=== PATIENT | female | born 1970 | race Caucasian/White ===

== ENCOUNTER 2016-05-30 09:05 | Inpatient (IN) | payer OTHER ==
--- NOTE | 2016-05-30 09:26 | CPEKG ---
Heart Rate: 67 RR Interval: 896 P-R Interval: 132 QRSD Interval: 86 QT Interval: 400 QTC Interval: 423 P Arden[place]: 78 QRS Ardenvoir: 93 T Wave Ardenvoir: 68 EKG Severity - BORDERLINE ECG - EKG Impression: SINUS RHYTHM EKG Impression: BORDERLINE RIGHT AXIS DEVIATION EKG Impression: BORDERLINE T ABNORMALITIES, ANT-LAT LEADS Electronically Signed By: Emile Lan 30-May-2016 14:22:46
[2016-05-30 10:02] LABS: % IMMATURE GRANULYOCYTES 0.4 % (0.0-1.1); ABSOLUTE IMMATURE GRANULOCYTES 0.03 10^3/uL (0.00-0.10); ADD DIFF? NO; ADD MORPH? NO; ADD SCAN? NO; ATYPICAL LYMPHOCYTE FLAG 0 (0-99); FRAGMENT RBC FLAG 0 (0-99); HEMATOCRIT 39.7 % (38.0-47.0); HEMOGLOBIN 13.3 g/dL (12.6-16.3); LEFT SHIFT FLG 0 (0-99); LIPEMIA HEMOLYSIS FLAG 80 (0-99); MEAN CELL HEMOGLOBIN 33.8 pg (27.9-34.1); MEAN CELL HEMOGLOBIN CONCENTR. 33.5 g/dL (32.4-36.7); MEAN PLATELET VOLUME 10.1 fL (8.7-11.7); PLATELET CLUMPS FLAG 10 (0-99); PLATELET COUNT 273 10^3/uL (150-400); RED BLOOD CELL COUNT 3.93 10^6/uL (4.18-5.33); RED CELL DISTRIBUTION WIDTH 12.2 % (11.5-15.2)
--- NOTE | 2016-05-30 10:07 | EDPHY ---
H & P Stated Complaint: DEPRESSION Time Seen by Provider: 05/30/16 09:31 HPI/ROS: CHIEF COMPLAINT: Refractory depression HISTORY OF PRESENT ILLNESS: The patient presents to the emergency department for possible inpatient admission for refractory depression. The patient has a history of difficult to control depression and has tried numerous medications including SSRIs, Abilify and oral ketamine. The patient was referred to our inpatient psychiatric unit for possible ECT therapy. The patient tells me she has a history of suicidal ideation without specific plan. She denies any drug ingestion. She is accompanied by her who is an emergency room physician. The patient does contract for safety and is here currently on a voluntary basis. She denies current suicidal thoughts or additional acute medical complaints. REVIEW OF SYSTEMS: A comprehensive 10 point review of systems is otherwise negative aside from elements mentioned in the history of present illness. Source: Patient Exam Limitations: No limitations - Personal History Current Tetanus/Diphtheria Vaccine: Yes - Medical/Surgical History Hx Asthma: No Hx Chronic Respiratory Disease: No Hx Diabetes: No Hx Cardiac Disease: No Hx Renal Disease: No Hx Cirrhosis: No Hx Alcoholism: No Hx HIV/AIDS: No Hx Splenectomy or Spleen Trauma: No Other PMH: DEPRESSION - Social History Smoking Status: Never smoked - Physical Exam Exam: General Appearance: Alert, no distress Eyes: No injection ENT, Mouth: Mucous membranes moist Respiratory: There are no retractions, lungs are clear to auscultation Cardiovascular: Regular rate and rhythm Neurological: Moving all 4 extremities Skin: Warm and dry, no rashes Psychiatric: Patient is alert and oriented, no acute distress, no agitation, endorses symptoms of depression, denies active suicidal thoughts but does report remote history of suicidal ideation. Constitutional: Initial Vital Signs Temperature (C) 36.0 C 05/30/16 09:14 Heart Rate 77 05/30/16 09:14 Respiratory Rate 16 05/30/16 09:14 Blood Pressure 135/85 H 05/30/16 09:14 O2 Sat (%) 100 05/30/16 09:14 O2 Delivery Mode Room Air Allergies/Adverse Reactions: metoclopramide HCl [From Reglan] Allergy (Verified 05/30/16 09:13) prochlorperazine [From Compazine] Allergy (Verified 05/30/16 09:14) prochlorperazine edisylate [From Compazine] Allergy (Verified 05/30/16 09:14) prochlorperazine maleate [From Compazine] Allergy (Verified 05/30/16 09:14) Home Medications: Medication Instructions Recorded Clavaris 40mg 40 mg PO DAILY 05/30/16 Cyanocobalamin [Vitamin B12 (*)] 1,000 mcg PO DAILY 05/30/16 DULoxetine [Cymbalta 60 MG (*)] 60 mg PO DAILY 05/30/16 Herbals/Supplements -Info Only 1 ea PO DAILY 05/30/16 Ketamine 100mg Compounded 100 mg PO Q2D 05/30/16 LORazepam [Ativan (*)] 1 mg PO DAILY PRN 05/30/16 Norgestimate-Ethinyl Estradiol 1 each PO DAILY 05/30/16 [Mononessa 28 Tablet] Polyethylene Glycol 3350 [Miralax 17 gm PO DAILY 05/30/16 17 gm (*)] Rizatriptan Benzoate [Maxalt] 10 mg PO DAILY PRN 05/30/16 Zolpidem Tartrate [Ambien 5MG (*)] 5 mg PO HS PRN 05/30/16 valACYclovir [Valtrex (*)] 500 mg PO DAILY 05/30/16 Medical Decision Making - Diagnostics EKG Interpretation: EKG: Complete interpretation has been separately recorded in the [employer] archive. Summary impression: Sinus rhythm, rate 67 ED Course/Re-evaluation: The patient has been medically cleared for psychiatric evaluation. She was seen by the [facility] evaluation service. The patient has been accepted at the inpatient knee unit here at [facility] for further evaluation and management of her refractory depression. She has been accepted for admission by Dr. Louis from Psychiatry. Differential Diagnosis: Differential diagnosis considered includes suicidal ideation, homicidal ideation , depression, psychosis - Data Points Laboratory Results: Laboratory Results 05/30/16 09:20 05/30/16 09:20 05/30/16 05/30/16 05/30/16 10:02 10:00 09:20 WBC 7.70 10^3/uL (3.80-9.50) RBC 3.93 L 10^6/uL (4.18-5.33) Hgb 13.3 g/dL (12.6-16.3) Hct 39.7 % (38.0-47.0) MCV 101.0 H fL (81.5-99.8) MCH 33.8 pg (27.9-34.1) MCHC 33.5 g/dL (32.4-36.7) RDW 12.2 % (11.5-15.2) Plt Count 273 10^3/uL (150-400) MPV 10.1 fL (8.7-11.7) Neut % (Auto) 47.9 % (39.3-74.2) Lymph % (Auto) 39.0 % (15.0-45.0) [place] % (Auto) 8.1 % (4.5-13.0) Eos % (Auto) 3.2 % (0.6-7.6) Baso % (Auto) 1.4 % (0.3-1.7) Nucleat RBC Rel Count 0.0 % (0.0-0.2) Absolute Neuts (auto) 3.69 10^3/uL (1.70-6.50) Absolute Lymphs (auto) 3.00 10^3/uL (1.00-3.00) Absolute Monos (auto) 0.62 10^3/uL (0.30-0.80) Absolute Eos (auto) 0.25 10^3/uL (0.03-0.40) Absolute Basos (auto) 0.11 H 10^3/uL (0.02-0.10) Absolute Nucleated RBC 0.00 10^3/uL (0-0.01) Immature Gran % 0.4 % (0.0-1.1) Immature Gran # 0.03 10^3/uL (0.00-0.10) Sodium 140 mEq/L (134-144) Potassium 3.8 mEq/L (3.5-5.2) Chloride 107 mEq/L (97-110) Carbon Dioxide 26 mEq/l (22-31) Anion Gap 11 mEq/L (8-20) BUN 11 mg/dL (7-23) Creatinine 0.8 mg/dL (0.6-1.0) Estimated GFR > 60 Glucose 68 L mg/dL (70-100) Hemoglobin A1c Estim Average Glucose Calcium 9.0 mg/dL (8.5-10.4) C-React Prot High Sens 2.4 mg/L Cancelled Vitamin B12 Pending Cancelled 25-OH Vitamin D Total 33.7 ng/mL Cancelled (30-100) Folate Pending Cancelled TSH 1.960 uIU/mL Cancelled (0.465-4.680) Urine Opiates Screen NEGATIVE (NEGATIVE) Urine Barbiturates NEGATIVE (NEGATIVE) Ur Phencyclidine Scrn NEGATIVE (NEGATIVE) Ur Amphetamine Screen NEGATIVE (NEGATIVE) U Benzodiazepines Scrn NEGATIVE (NEGATIVE) Urine Cocaine Screen NEGATIVE (NEGATIVE) U Marijuana (THC) Screen NEGATIVE (NEGATIVE) Ethyl Alcohol < 10 mg/dL (0-10) 05/30/16 09:00 WBC RBC Hgb Hct MCV MCH MCHC RDW Plt Count MPV Neut % (Auto) Lymph % (Auto) [place] % (Auto) Eos % (Auto) Baso % (Auto) Nucleat RBC Rel Count Absolute Neuts (auto) Absolute Lymphs (auto) Absolute Monos (auto) Absolute Eos (auto) Absolute Basos (auto) Absolute Nucleated RBC Immature Gran % Immature Gran # Sodium Potassium Chloride Carbon Dioxide Anion Gap BUN Creatinine Estimated GFR Glucose Hemoglobin A1c 5.2 % (4.0-6.0) Estim Average Glucose 103 mg/dL (68-126) Calcium C-React Prot High Sens Vitamin B12 25-OH Vitamin D Total Folate TSH Urine Opiates Screen Urine Barbiturates Ur Phencyclidine Scrn Ur Amphetamine Screen U Benzodiazepines Scrn Urine Cocaine Screen U Marijuana (THC) Screen Ethyl Alcohol Departure - Departure Disposition: [facility] IP Condition: Good Instructions: Depression (ED) Referrals: NONE *PRIMARY CARE P,. [Unknown] - As per Instructions
[2016-05-30 10:25] LABS: ANION GAP 11 mEq/L (8-20); CARBON DIOXIDE 26 mEq/l (22-31); CHLORIDE 107 mEq/L (97-110); CREATININE 0.8 mg/dL (0.6-1.0); ETHANOL SERUM < 10 mg/dL (0-10); GLOMERULAR FILTRATION RATE > 60; GLUCOSE 68 mg/dL (70-100); POTASSIUM 3.8 mEq/L (3.5-5.2); SODIUM 140 mEq/L (134-144)
[2016-05-30] MEDS ORDERED: MAGNESIUM HYDROXIDE 30 ML UDCUP PO PRN ×2 (11:11→14:20)
[2016-05-30] MEDS ORDERED: MAG HYDROX/AL HYDROX/SIMETH 30 ML UDCUP PO PRN ×2 (11:11→14:20)
[2016-05-30] MEDS ORDERED: NICOTINE POLACRILEX 2 MG GUM B PRN ×2 (11:11→14:20)
[2016-05-30 11:30] LABS: HEMOGLOBIN A1C 5.2 % (4.0-6.0)
[2016-05-30 12:16] LABS: HIGHLY SENSITIVE CRP 2.4 mg/L
[2016-05-30 12:32] LABS: VITAMIN D 25-HYDROXY TOTAL 33.7 ng/mL (30-100)
[2016-05-30 13:20] LABS: FOLATE SERUM > 20.00 ng/mL (2.80 - >20.00)
[2016-05-30] MEDS ORDERED: LORazepam 1 MG TAB PO PRN (16:01)
[2016-05-30] MEDS ORDERED: RIZATRIPTAN BENZOATE 10 MG PO PRN ×2 (16:01→16:27)
[2016-05-30] MEDS ORDERED: ZOLPIDEM TARTRATE 5 MG TAB PO PRN (16:01)
[2016-05-30] MEDS: NORGESTIMATE ETHINYL ESTRADIOL PO SCH (18:06)
[2016-05-30] MEDS: (Rizatriptan Benzoate [Maxalt] 10 MG) PO PRN (19:41)
[2016-05-30] MEDS ORDERED: QUEtiapine FUMARATE 50 MG TAB PO SCH (21:00)
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
[2016-05-30] MEDS: OMEGA-3 FATTY ACIDS 1,000 MG CAP PO SCH (22:04)
[2016-05-31] MEDS: [UNRECOGNIZED DRUG - OTHER] PO SCH (08:34)
[2016-05-31] MEDS: CHOLECALCIFEROL VIT D3 1,000 UNITS TAB PO SCH (08:39)
[2016-05-31] MEDS: CYANO/VITAMIN B12 1000 MCG TAB PO SCH (08:39)
[2016-05-31] MEDS: NORGESTIMATE ETHINYL ESTRADIOL PO SCH (08:39)
[2016-05-31] MEDS: OMEGA-3 FATTY ACIDS 1,000 MG CAP PO SCH ×2 (08:40→21:24)
[2016-05-31] MEDS: valACYclovir 500 MG TAB PO SCH (08:40)
[2016-05-31] MEDS: POLYETHYLENE GLYCOL 3350 17 GM PKT PO SCH (08:40)
[2016-05-31] MEDS ORDERED: CYANO/VITAMIN B12 1000 MCG TAB PO SCH (09:00)
[2016-05-31] MEDS ORDERED: [UNRECOGNIZED DRUG - OTHER] PO SCH (09:00)
[2016-05-31] MEDS ORDERED: DULoxetine 60 MG CAP PO SCH (09:00)
[2016-05-31] MEDS ORDERED: NORGESTIMATE ETHINYL ESTRADIOL PO SCH ×2 (09:00)
[2016-05-31] MEDS ORDERED: QUEtiapine FUMARATE 25 MG TAB PO PRN (15:05)
[2016-05-31] MEDS ORDERED: QUEtiapine FUMARATE 50 MG TAB PO SCH (15:05)
--- NOTE | 2016-05-31 15:16 | BCON ---
[f rep st] BEHAVIORAL HEALTH CONSULTATION INTERNAL MEDICINE EVALUATION DATE OF CONSULTATION: 05/31/2016 REFERRING PHYSICIAN: Sean Zuniga MD REASON FOR CONSULTATION: Medical clearance for inpatient behavioral health stay. 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 She had a particularly severe and prolonged depression for approximately the past 5 months following the breakup of a relationship. She was admitted for further psychiatric care and to consider electroconvulsive therapy. She is currently without any acute medical complaints. PAST MEDICAL HISTORY: 1. Migraine headaches. 2. Premature menopause at age 46. 3. History of a concussion. 4. Migraines. PAST SURGICAL HISTORY: She has had a Bartholin's cyst resection and she has had a colonoscopy. ALLERGIES: There are allergies listed to Reglan and Compazine. 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 She is a nonsmoker. She does not use alcohol. She does not use other substances of abuse. FAMILY HISTORY: Noncontributory. REVIEW OF SYSTEMS: She denies weight loss, fevers, chills, cough, dyspnea, chest pain, palpitations, nausea, vomiting, constipation, or diarrhea. Otherwise, a 10-point review of systems is negative. PHYSICAL EXAM: VITAL SIGNS: Blood pressure is 120/54, heart rate is 62, respiratory rate is 14, oxygen saturation is 96% on room air, temperature is 36.9 degrees centigrade. Her weight is 45.4 kg for a body mass index of 19.5. GENERAL: This is a well-nourished, well-developed woman appears her chronologic age, cooperative, and in no acute distress. HEENT: Extraocular movements are intact. Pupils are equal, round, reactive to light. Mucous membranes are moist. Dentition is in good condition. NECK: Supple with no thyromegaly. HEART: There is a regular rate and rhythm with no murmurs, rubs, or gallops. LUNGS: Clear to auscultation bilaterally. ABDOMEN: Soft, nontender, nondistended with normoactive bowel sounds. EXTREMITIES: There is no cyanosis, clubbing, or edema. Radial and dorsalis pedis pulses are 2+ bilaterally. NEUROLOGIC: She has a flat affect. She is alert and oriented x3. Cranial nerves 2-12 are grossly intact. There is no focal weakness, and sensation is intact to light touch and gait is normal. LABORATORY DATA: CBC revealed a slightly low red blood cell count and an elevated mean cellular volume of 101. Otherwise, CBC was within normal limits. Serum chemistry revealed normal renal function and electrolytes. Hemoglobin A1c was tested and was normal at 5.2. Other labs included a C-reactive protein which was normal, vitamin B12 level which was normal, vitamin D level which was normal, folate which was normal, and TSH which was normal at 1.96. Toxicology screen in the serum was negative for ethyl alcohol, and the urine was negative for any substances of abuse. ASSESSMENT AND PLAN: 1. Mental health issues, pending further evaluation and management per Psychiatry and the mental health team. 2. Migraine headaches. These have been occasional and have responded to rizatriptan, which is currently prescribed . 3. Premature menopause, on hormone replacement therapy. 4. Macrocytosis of unclear etiology with a normal B12 and folate. She has no anemia and there are no symptoms. Advise further evaluation as an outpatient after discharge. I see no medical contraindications to Dr. Lawson's continued stay on the inpatient behavioral health unit, or to any psychiatric medications or procedures. Thank you very much for including me in the care of Dr. Lawson, and please do not hesitate to contact me or the hospitalist service should there be need for any further medical evaluation. /[id number]/MODL MTDD
--- NOTE | 2016-05-31 15:30 | SOAPPROG ---
SOAP Progress Note Assessment/Plan: Assessment: Bipolar NOS v MDD, severe treatment resistant, OCD, Eating Disorder NOS Plan: Full ECT consultation completed today. Discussed case at length with Dr. Vazquez.He agreed that we are likely treating a bipolar spectrum illness.He agrees with restarting Lamictal, Titrating Seroquel, And discontinuing Cymbalta.I will use Prozac 40 mg a day for five days in order to circumvent Serotonin discontinuation syndrome.We will also use Seroquel in low doses as needed for anxiety in order to minimize use of benzodiazepine. She gives I/C for these changes understanding the metabolic risks and that of EPS/akithesia/ TD and rash/Odom Johnsons. Pt and I reviewed efficacy of ECT in TRD vs Med using Star D date to inform us. She understands The value of using maintenance ECT along with medication for up to a year after the acute course in order to minimize relapse risk to which one would be highly vulnerable in that first 6 to 12 months. In further discussing Her post discharge convalescent care, She felt that the use of an assisted living program would be bestIn order to minimize the burden on her family. Her brother is a agronomy professor and her sister in law works for the [employer] and I offered to use FMLA paperwork for either of them. Likewise, I encouraged the patient to receive FMLA paperwork from her own hospital so then I could fill it out for her Most time spent reviewing cognitive impact of ECT Including anterograde and retrograde amnesia, abulia, delirium, and we reviewed the notion of state dependent memory issues. We contrasted these mostly transitory problems with the much more globally impactful effects of her illness itself with its risk of self harm, nil quality of life, and cognitive impairment itself. I expressed hopefulness re her prognosis given severe vegetative symtoms, and relatively short duration (4-5 months) of this present episode. 05/31/16 15:12 Objective: Vital Signs Temp Pulse Resp BP Pulse Ox 36.9 C 62 14 120/54 L 96 05/31/16 06:00 05/31/16 06:00 05/31/16 06:00 05/31/16 06:00 05/31/16 06:00 Laboratory Tests 05/30/16 05/30/16 09:00 10:00 Hemoglobin A1c 5.2 C-React Prot High Sens 2.4 Vitamin B12 460 25-OH Vitamin D Total 33.7 Folate > 20.00 TSH 1.960 - Time Spent With Patient Time Spent With Patient: 75 min ICD10 Worksheet Patient Problems: Problems Problem Status Diagnosed Bipolar disorder Acute Eating disorder Acute Major depress dis, severe Acute OCD (obsessive compulsive disorder) Acute - ICD10 Problem Qualifiers (1) Bipolar disorder Qualifiers: Active/Remission status: currently active Current bipolar episode type : depressed Current episode severity: severe Psychotic features: without psychotic features Qualified Description: Bipolar disorder, current episode depressed, severe, without psychotic features Qualifier Code(s): ( F31.4) Bipolar disorder, current episode depressed, severe, without psychotic features (2) Major depress dis, severe (3) OCD (obsessive compulsive disorder) (4) Eating disorder
[2016-05-31] MEDS: lamoTRIgine 25 MG TAB PO SCH (21:19)
[2016-06-01] MEDS ORDERED: LIDOCAINE 2% 5 ML SDV ID ONE (04:00)
[2016-06-01] MEDS ORDERED: NS 500 ML IV ONE (04:00)
[2016-06-01] MEDS ORDERED: ONDANSETRON DISINTEGRATING 4 MG TAB PO ONE (04:00)
[2016-06-01] MEDS ORDERED: CITRIC ACID/SODIUM CITRATE 30 ML UDCUP PO ONE (04:00)
[2016-06-01] MEDS ORDERED: fentaNYL 100 MCG/2 ML INJ ONE (07:13)
[2016-06-01] MEDS ORDERED: MIDAZOLAM 2 MG/2 ML VIAL ONE (07:13)
[2016-06-01] MEDS ORDERED: GLYCOPYRROLATE 0.2 MG/1 ML VIAL ONE (07:13)
[2016-06-01] MEDS ORDERED: ONDANSETRON 4 MG/2 ML VIAL ONE (07:13)
[2016-06-01] MEDS ORDERED: ETOMIDATE 20 MG/10 ML VIAL ONE (07:14)
[2016-06-01] MEDS ORDERED: SUCCINYLCHOLINE CHLORIDE 200 MG/10 ML VIAL ONE (07:14)
[2016-06-01] MEDS ORDERED: ROCURONIUM 50 MG/5 ML VIAL ONE (07:14)
[2016-06-01] MEDS ORDERED: CITRIC ACID/SODIUM CITRATE 30 ML UDCUP ONE (10:49)
[2016-06-01] MEDS ORDERED: ONDANSETRON DISINTEGRATING 4 MG TAB ONE (10:49)
[2016-06-01] MEDS ORDERED: IBUPROFEN 600 MG TAB PO PRN (11:59)
[2016-06-01] MEDS ORDERED: HYDROCODONE/APAP 5/325 TAB PO PRN (11:59)
[2016-06-01] MEDS ORDERED: ONDANSETRON DISINTEGRATING 4 MG TAB PO PRN (11:59)
--- NOTE | 2016-06-01 12:07 | SOAPPROG ---
SOAP Progress Note Assessment/Plan: Assessment: Bipolar NOS v MDD, severe treatment resistant, OCD, Eating Disorder NOS Plan: Full ECT consultation completed today. Discussed case at length with Dr. Vazquez.He agreed that we are likely treating a bipolar spectrum illness.He agrees with restarting Lamictal, Titrating Seroquel, And discontinuing Cymbalta.I will use Prozac 40 mg a day for five days in order to circumvent Serotonin discontinuation syndrome.We will also use Seroquel in low doses as needed for anxiety in order to minimize use of benzodiazepine. She gives I/C for these changes understanding the metabolic risks and that of EPS/akithesia/ TD and rash/Odom Johnsons. Pt and I reviewed efficacy of ECT in TRD vs Med using Star D date to inform us. She understands The value of using maintenance ECT along with medication for up to a year after the acute course in order to minimize relapse risk to which one would be highly vulnerable in that first 6 to 12 months. In further discussing Her post discharge convalescent care, She felt that the use of an assisted living program would be bestIn order to minimize the burden on her family. Her brother is a zoology professor and her sister in law works for the [employer] and I offered to use FMLA paperwork for either of them. Likewise, I encouraged the patient to receive FMLA paperwork from her own hospital so then I could fill it out for her Most time spent reviewing cognitive impact of ECT Including anterograde and retrograde amnesia, abulia, delirium, and we reviewed the notion of state dependent memory issues. We contrasted these mostly transitory problems with the much more globally impactful effects of her illness itself with its risk of self harm, nil quality of life, and cognitive impairment itself. I expressed hopefulness re her prognosis given severe vegetative symtoms, and relatively short duration (4-5 months) of this present episode. 05/31/16 15:12 Pt highly dyphoric and hopeless with SI. Has some capacity to feel hope around ECT, but worries that she will be in the perecent of patients that do not respond. Slept well with seroquel without akathisia. WIll increase to 150 mg. Underwent first ECT today at 50% (0.25 msec) and had short motor seizure. Will add theophylline 160 mg pre ECT. Affect constricted, PMR, poor eye contact, TP goal directed. TC pos SI/rumination/hopelessness. 06/01/16 12:04 Objective: Vital Signs Temp Pulse Resp BP Pulse Ox 36.6 C 66 14 100/53 L 96 06/01/16 06:23 06/01/16 06:23 06/01/16 06:23 06/01/16 06:23 06/01/16 06:23 ICD10 Worksheet Patient Problems: Problems Problem Status Diagnosed Bipolar disorder Acute Eating disorder Acute Major depress dis, severe Acute OCD (obsessive compulsive disorder) Acute - ICD10 Problem Qualifiers (1) Bipolar disorder Qualifiers: Active/Remission status: currently active Current bipolar episode type : depressed Current episode severity: severe Psychotic features: without psychotic features Qualified Description: Bipolar disorder, current episode depressed, severe, without psychotic features Qualifier Code(s): ( F31.4) Bipolar disorder, current episode depressed, severe, without psychotic features (2) Major depress dis, severe (3) OCD (obsessive compulsive disorder) (4) Eating disorder
[2016-06-01] MEDS: FLUoxetine 20 MG CAP PO SCH (13:59)
[2016-06-01] MEDS: valACYclovir 500 MG TAB PO SCH (14:00)
[2016-06-01] MEDS: NORGESTIMATE ETHINYL ESTRADIOL PO SCH (14:00)
[2016-06-01] MEDS: CHOLECALCIFEROL VIT D3 1,000 UNITS TAB PO SCH (17:21)
[2016-06-01] MEDS: CYANO/VITAMIN B12 1000 MCG TAB PO SCH (17:21)
[2016-06-01] MEDS: OMEGA-3 FATTY ACIDS 1,000 MG CAP PO SCH ×2 (17:21→20:54)
[2016-06-01] MEDS: POLYETHYLENE GLYCOL 3350 17 GM PKT PO SCH (17:22)
[2016-06-01] MEDS: [UNRECOGNIZED DRUG - OTHER] PO SCH ×2 (17:28→17:38)
[2016-06-01] MEDS: (Rizatriptan Benzoate [Maxalt] 10 MG) PO PRN (17:33)
[2016-06-01] MEDS: [UNRECOGNIZED DRUG - OTHER] PO SCH ×2 (17:34→17:37)
[2016-06-01] MEDS: QUEtiapine FUMARATE 50 MG TAB PO SCH (20:54)
[2016-06-01] MEDS: lamoTRIgine 25 MG TAB PO SCH (20:54)
[2016-06-02] MEDS: (Rizatriptan Benzoate [Maxalt] 10 MG) PO PRN ×2 (07:53→11:50)
[2016-06-02] MEDS: POLYETHYLENE GLYCOL 3350 17 GM PKT PO SCH (09:13)
[2016-06-02] MEDS: OMEGA-3 FATTY ACIDS 1,000 MG CAP PO SCH ×2 (09:13→21:07)
[2016-06-02] MEDS: CHOLECALCIFEROL VIT D3 1,000 UNITS TAB PO SCH (09:14)
[2016-06-02] MEDS: FLUoxetine 20 MG CAP PO SCH (09:14)
[2016-06-02] MEDS: valACYclovir 500 MG TAB PO SCH (09:15)
[2016-06-02] MEDS: [UNRECOGNIZED DRUG - OTHER] PO SCH (09:16)
[2016-06-02] MEDS: NORGESTIMATE ETHINYL ESTRADIOL PO SCH (09:19)
[2016-06-02] MEDS: CYANO/VITAMIN B12 1000 MCG TAB PO SCH (09:27)
[2016-06-02] MEDS: IBUPROFEN 200 MG TAB PO PRN (11:51)
--- NOTE | 2016-06-02 17:20 | SOAPPROG ---
SOAP Progress Note Assessment/Plan: Assessment: Bipolar NOS v MDD, severe treatment resistant, OCD, Eating Disorder NOS Plan: Full ECT consultation completed today. Discussed case at length with Dr. Vazquez.He agreed that we are likely treating a bipolar spectrum illness.He agrees with restarting Lamictal, Titrating Seroquel, And discontinuing Cymbalta.I will use Prozac 40 mg a day for five days in order to circumvent Serotonin discontinuation syndrome.We will also use Seroquel in low doses as needed for anxiety in order to minimize use of benzodiazepine. She gives I/C for these changes understanding the metabolic risks and that of EPS/akithesia/ TD and rash/Odom Johnsons. Pt and I reviewed efficacy of ECT in TRD vs Med using Star D date to inform us. She understands The value of using maintenance ECT along with medication for up to a year after the acute course in order to minimize relapse risk to which one would be highly vulnerable in that first 6 to 12 months. In further discussing Her post discharge convalescent care, She felt that the use of an assisted living program would be bestIn order to minimize the burden on her family. Her brother is a plant biology professor and her sister in law works for the [employer] and I offered to use FMLA paperwork for either of them. Likewise, I encouraged the patient to receive FMLA paperwork from her own hospital so then I could fill it out for her Most time spent reviewing cognitive impact of ECT Including anterograde and retrograde amnesia, abulia, delirium, and we reviewed the notion of state dependent memory issues. We contrasted these mostly transitory problems with the much more globally impactful effects of her illness itself with its risk of self harm, nil quality of life, and cognitive impairment itself. I expressed hopefulness re her prognosis given severe vegetative symtoms, and relatively short duration (4-5 months) of this present episode. 05/31/16 15:12 Pt highly dyphoric and hopeless with SI. Has some capacity to feel hope around ECT, but worries that she will be in the perecent of patients that do not respond. Slept well with seroquel without akathisia. WIll increase to 150 mg. Underwent first ECT today at 50% (0.25 msec) and had short motor seizure. Will add theophylline 160 mg pre ECT. Affect constricted, PMR, poor eye contact, TP goal directed. TC pos SI/rumination/hopelessness. 06/01/16 12:04 06/02/16 17:17 Pt complained of bad, migrainous BUSBY post ECT, lasting until today, Rxed with her tryptan plus Ibuprofen. Will increase IV anti BUSBY meds tomorrow with ECT. She reports no clear changes in mood, but investment underwriter shared with her that she looked a bit less tense and dysphoric and was making better eye contact. She minimized the significance of these observations and had a narrative for why she might look better but was really not. Stilll thus hopeless and feeling like this is her "last resort" with plan to suicide, she now states, if ECT does not work She met with brother and sister in law. Apparently they are quite happy to help her post discharge, despite her reluctance to let them do so. Assisted living for dispo remains a possibility. 06/02/16 17:19 Objective: Vital Signs Temp Pulse Resp BP Pulse Ox 36.8 C 64 14 87/41 L 97 06/02/16 05:56 06/02/16 05:56 06/02/16 05:56 06/02/16 05:56 06/02/16 05:56 ICD10 Worksheet Patient Problems: Problems Problem Status Diagnosed Bipolar disorder Acute Eating disorder Acute Major depress dis, severe Acute OCD (obsessive compulsive disorder) Acute - ICD10 Problem Qualifiers (1) Bipolar disorder Qualifiers: Active/Remission status: currently active Current bipolar episode type : depressed Current episode severity: severe Psychotic features: without psychotic features Qualified Description: Bipolar disorder, current episode depressed, severe, without psychotic features Qualifier Code(s): ( F31.4) Bipolar disorder, current episode depressed, severe, without psychotic features (2) Major depress dis, severe (3) OCD (obsessive compulsive disorder) (4) Eating disorder
[2016-06-02] MEDS: lamoTRIgine 25 MG TAB PO SCH ×2 (20:51→21:13)
[2016-06-02] MEDS: QUEtiapine FUMARATE 50 MG TAB PO SCH (21:07)
[2016-06-03] MEDS ORDERED: CITRIC ACID/SODIUM CITRATE 30 ML UDCUP PO ONE (04:00)
[2016-06-03] MEDS ORDERED: NS 500 ML IV ONE (04:00)
[2016-06-03] MEDS ORDERED: ONDANSETRON DISINTEGRATING 4 MG TAB PO ONE ×2 (04:00→13:47)
[2016-06-03] MEDS ORDERED: THEOPHYLLINE ORAL SOLUTION 80 MG/15 ML UDCUP PO ONE ×2 (04:00→11:30)
[2016-06-03] MEDS ORDERED: LIDOCAINE 2% 5 ML SDV ID ONE (04:00)
[2016-06-03] MEDS ORDERED: fentaNYL 100 MCG/2 ML INJ ONE (06:25)
[2016-06-03] MEDS ORDERED: GLYCOPYRROLATE 0.2 MG/1 ML VIAL ONE (06:26)
[2016-06-03] MEDS ORDERED: ETOMIDATE 20 MG/10 ML VIAL ONE (06:26)
[2016-06-03] MEDS ORDERED: MIDAZOLAM 2 MG/2 ML VIAL ONE (06:26)
[2016-06-03] MEDS ORDERED: ONDANSETRON 4 MG/2 ML VIAL ONE (06:26)
[2016-06-03] MEDS ORDERED: SUCCINYLCHOLINE CHLORIDE 200 MG/10 ML VIAL ONE (06:27)
[2016-06-03] MEDS ORDERED: ROCURONIUM 50 MG/5 ML VIAL ONE (06:27)
[2016-06-03] MEDS ORDERED: CITRIC ACID/SODIUM CITRATE 30 ML UDCUP ONE (13:10)
[2016-06-03] MEDS ORDERED: ONDANSETRON DISINTEGRATING 4 MG TAB ONE (13:10)
[2016-06-03] MEDS ORDERED: KETOROLAC 30 MG/1 ML SDV ONE (13:31)
[2016-06-03] MEDS ORDERED: QUEtiapine FUMARATE 50 MG TAB PO SCH (13:43)
[2016-06-03] MEDS ORDERED: HYDROCODONE/APAP 5/325 TAB PO PRN (13:46)
[2016-06-03] MEDS ORDERED: ONDANSETRON DISINTEGRATING 4 MG TAB PO PRN (13:46)
--- NOTE | 2016-06-03 13:52 | SOAPPROG ---
SOAP Progress Note Assessment/Plan: Assessment: Bipolar NOS v MDD, severe treatment resistant, OCD, Eating Disorder NOS Plan: Full ECT consultation completed today. Discussed case at length with Dr. Vazquez.He agreed that we are likely treating a bipolar spectrum illness.He agrees with restarting Lamictal, Titrating Seroquel, And discontinuing Cymbalta.I will use Prozac 40 mg a day for five days in order to circumvent Serotonin discontinuation syndrome.We will also use Seroquel in low doses as needed for anxiety in order to minimize use of benzodiazepine. She gives I/C for these changes understanding the metabolic risks and that of EPS/akithesia/ TD and rash/Odom Johnsons. Pt and I reviewed efficacy of ECT in TRD vs Med using Star D date to inform us. She understands The value of using maintenance ECT along with medication for up to a year after the acute course in order to minimize relapse risk to which one would be highly vulnerable in that first 6 to 12 months. In further discussing Her post discharge convalescent care, She felt that the use of an assisted living program would be bestIn order to minimize the burden on her family. Her brother is a biophysics scientist and her sister in law works for the [employer] and I offered to use FMLA paperwork for either of them. Likewise, I encouraged the patient to receive FMLA paperwork from her own hospital so then I could fill it out for her Most time spent reviewing cognitive impact of ECT Including anterograde and retrograde amnesia, abulia, delirium, and we reviewed the notion of state dependent memory issues. We contrasted these mostly transitory problems with the much more globally impactful effects of her illness itself with its risk of self harm, nil quality of life, and cognitive impairment itself. I expressed hopefulness re her prognosis given severe vegetative symtoms, and relatively short duration (4-5 months) of this present episode. 05/31/16 15:12 Pt highly dyphoric and hopeless with SI. Has some capacity to feel hope around ECT, but worries that she will be in the perecent of patients that do not respond. Slept well with seroquel without akathisia. WIll increase to 150 mg. Underwent first ECT today at 50% (0.25 msec) and had short motor seizure. Will add theophylline 160 mg pre ECT. Affect constricted, PMR, poor eye contact, TP goal directed. TC pos SI/rumination/hopelessness. 06/01/16 12:04 06/02/16 17:17 Pt complained of bad, migrainous BUSBY post ECT, lasting until today, Rxed with her tryptan plus Ibuprofen. Will increase IV anti BUSBY meds tomorrow with ECT. She reports no clear changes in mood, but information writer shared with her that she looked a bit less tense and dysphoric and was making better eye contact. She minimized the significance of these observations and had a narrative for why she might look better but was really not. Stilll thus hopeless and feeling like this is her "last resort" with plan to suicide, she now states, if ECT does not work She met with brother and sister in law. Apparently they are quite happy to help her post discharge, despite her reluctance to let them do so. Assisted living for dispo remains a possibility. 06/02/16 17:19 06/03/16 13:48 Pt reports an abatement of seroquel related sedation after her second dose last night. Hence, will increase to 200 mg q hs. No rash with LMT. Affect still quite constricted, poor eye contact again today, +PMR, hopeless and with significant SI intent, with plan to if ECT "does not work." Rumination. self deprecation, guilt, sig cognitive deficits in exec functioning, attention and processing speed. Better motor seizure today with addition of theophylline. Anticipate no med changes over weekend. Coming off cymbalta, but using Prozac temporarily to prevent 5HT withdrawal symtoms. Objective: Vital Signs Temp Pulse Resp BP Pulse Ox 36.8 C 61 12 91/46 L 95 06/03/16 06:10 06/03/16 06:10 06/03/16 06:10 06/03/16 06:10 06/03/16 06:10 ICD10 Worksheet Patient Problems: Problems Problem Status Diagnosed Bipolar disorder Acute Eating disorder Acute Major depress dis, severe Acute OCD (obsessive compulsive disorder) Acute - ICD10 Problem Qualifiers (1) Bipolar disorder Qualifiers: Active/Remission status: currently active Current bipolar episode type : depressed Current episode severity: severe Psychotic features: without psychotic features Qualified Description: Bipolar disorder, current episode depressed, severe, without psychotic features Qualifier Code(s): ( F31.4) Bipolar disorder, current episode depressed, severe, without psychotic features (2) Major depress dis, severe (3) OCD (obsessive compulsive disorder) (4) Eating disorder
[2016-06-03] MEDS: OMEGA-3 FATTY ACIDS 1,000 MG CAP PO SCH ×2 (15:02→21:44)
[2016-06-03] MEDS: POLYETHYLENE GLYCOL 3350 17 GM PKT PO SCH ×2 (15:03→21:45)
[2016-06-03] MEDS: FLUoxetine 20 MG CAP PO SCH (15:03)
[2016-06-03] MEDS: CHOLECALCIFEROL VIT D3 1,000 UNITS TAB PO SCH (15:04)
[2016-06-03] MEDS: valACYclovir 500 MG TAB PO SCH (15:05)
[2016-06-03] MEDS: NORGESTIMATE ETHINYL ESTRADIOL PO SCH (15:12)
[2016-06-03] MEDS: SUMAtriptan 50 MG TAB PO PRN (15:51)
[2016-06-03] MEDS: [UNRECOGNIZED DRUG - OTHER] PO SCH (19:48)
[2016-06-03] MEDS: lamoTRIgine 25 MG TAB PO SCH (21:45)
[2016-06-03] MEDS: QUEtiapine FUMARATE 200 MG TAB PO SCH (21:45)
[2016-06-04] MEDS: CYANO/VITAMIN B12 1000 MCG TAB PO SCH ×2 (00:47→09:57)
[2016-06-04] MEDS: OMEGA-3 FATTY ACIDS 1,000 MG CAP PO SCH ×2 (09:57→21:07)
[2016-06-04] MEDS: CHOLECALCIFEROL VIT D3 1,000 UNITS TAB PO SCH (09:57)
[2016-06-04] MEDS: FLUoxetine 20 MG CAP PO SCH (09:57)
[2016-06-04] MEDS: valACYclovir 500 MG TAB PO SCH (09:58)
[2016-06-04] MEDS: NORGESTIMATE ETHINYL ESTRADIOL PO SCH (09:58)
[2016-06-04] MEDS: POLYETHYLENE GLYCOL 3350 17 GM PKT PO SCH ×2 (09:59→21:14)
[2016-06-04] MEDS: [UNRECOGNIZED DRUG - OTHER] PO SCH (10:16)
[2016-06-04] MEDS: QUEtiapine FUMARATE 200 MG TAB PO SCH (21:07)
[2016-06-04] MEDS: lamoTRIgine 25 MG TAB PO SCH (21:08)
--- NOTE | 2016-06-05 01:57 | SOAPPROG ---
SOAP Progress Note Assessment/Plan: Assessment: Plan: -cont current meds and ECT as planned 06/04/16: Objective: Vital Signs Temp Pulse Resp BP Pulse Ox 36.8 C 64 12 97/56 L 95 06/04/16 00:02 06/04/16 00:02 06/04/16 00:02 06/04/16 00:02 06/04/16 00:02 ICD10 Worksheet Patient Problems: Problems Problem Status Diagnosed Bipolar disorder Acute Eating disorder Acute Major depress dis, severe Acute OCD (obsessive compulsive disorder) Acute
[2016-06-05] MEDS: CYANO/VITAMIN B12 1000 MCG TAB PO SCH (10:07)
[2016-06-05] MEDS: POLYETHYLENE GLYCOL 3350 17 GM PKT PO SCH (10:07)
[2016-06-05] MEDS: CHOLECALCIFEROL VIT D3 1,000 UNITS TAB PO SCH (10:08)
[2016-06-05] MEDS: valACYclovir 500 MG TAB PO SCH (10:08)
[2016-06-05] MEDS: FLUoxetine 20 MG CAP PO SCH (10:08)
[2016-06-05] MEDS: OMEGA-3 FATTY ACIDS 1,000 MG CAP PO SCH ×2 (10:08→21:15)
[2016-06-05] MEDS: NORGESTIMATE ETHINYL ESTRADIOL PO SCH (10:20)
[2016-06-05] MEDS: [UNRECOGNIZED DRUG - OTHER] PO SCH (10:31)
--- NOTE | 2016-06-05 12:19 | SOAPPROG ---
SOAP Progress Note Assessment/Plan: Assessment: 46yo CF with severe depression, recently started ECT Plan: -cont current meds and ECT as planned 06/05/16 19:45 depressed, isolating in room although coming out for meals and meditation group. denies any physical complaints. was asked about ns staff concerns around wanting laxative bid and showing after each meal- this was NOT accurate, pt only requested 2nd laxative yesterday which was helpful (does not want bid), and only takes one shower/day. denied engaging in any bulemia behaviors or restricting to lose weight. has been eating but not enjoying meals. reading medical journals but with some difficulty concentrating. mse: cooperative, downcast gaze, psychomotor retardation, low vol speech, nml/ slow rate, mood+depressed, easily tearful, especially when briefly recalled end of relationship 6mo ago and her worsening depression despite attempts at coping strategies. No current SI plan/intent, hasn't been thinking about anything, feeling somewhat "numb". Denied any psychotic sxs. "I just want this (ECT) to work so I can get out of here." Objective: Vital Signs Temp Pulse Resp BP Pulse Ox 36.6 C 66 12 102/51 L 94 06/05/16 06:12 06/05/16 06:12 06/05/16 06:12 06/05/16 06:12 06/05/16 06:12 - Time Spent With Patient Time Spent With Patient: 20 min - Pending Discharge Pending Discharge Within 24 Hours: No Pending Discharge Within 48 Hours: No ICD10 Worksheet Patient Problems: Problems Problem Status Diagnosed Bipolar disorder Acute Eating disorder Acute Major depress dis, severe Acute OCD (obsessive compulsive disorder) Acute
[2016-06-05] MEDS: lamoTRIgine 25 MG TAB PO SCH ×2 (20:24→22:04)
[2016-06-05] MEDS: QUEtiapine FUMARATE 200 MG TAB PO SCH (21:14)
[2016-06-06] MEDS ORDERED: THEOPHYLLINE ORAL SOLUTION 80 MG/15 ML UDCUP PO ONE (04:00)
[2016-06-06] MEDS ORDERED: CITRIC ACID/SODIUM CITRATE 30 ML UDCUP PO ONE (04:00)
[2016-06-06] MEDS ORDERED: NS 500 ML IV ONE (04:00)
[2016-06-06] MEDS ORDERED: LIDOCAINE 2% 5 ML SDV ID ONE (04:00)
[2016-06-06] MEDS ORDERED: MIDAZOLAM 2 MG/2 ML VIAL ONE (05:30)
[2016-06-06] MEDS ORDERED: fentaNYL 100 MCG/2 ML INJ ONE (05:30)
[2016-06-06] MEDS ORDERED: KETOROLAC 30 MG/1 ML SDV ONE (05:31)
[2016-06-06] MEDS ORDERED: ETOMIDATE 20 MG/10 ML VIAL ONE (05:31)
[2016-06-06] MEDS ORDERED: GLYCOPYRROLATE 0.2 MG/1 ML VIAL ONE (05:31)
[2016-06-06] MEDS ORDERED: ONDANSETRON 4 MG/2 ML VIAL ONE (05:31)
[2016-06-06] MEDS ORDERED: ROCURONIUM 50 MG/5 ML VIAL ONE (05:32)
[2016-06-06] MEDS ORDERED: SUCCINYLCHOLINE CHLORIDE 200 MG/10 ML VIAL ONE (05:32)
[2016-06-06] MEDS ORDERED: LORazepam 1 MG TAB PO PRN (13:49)
[2016-06-06] MEDS ORDERED: ONDANSETRON DISINTEGRATING 4 MG TAB PO PRN (13:50)
[2016-06-06] MEDS ORDERED: HYDROCODONE/APAP 5/325 TAB PO PRN (13:50)
--- NOTE | 2016-06-06 13:56 | SOAPPROG ---
SOAP Progress Note Assessment/Plan: Assessment: Bipolar NOS v MDD, severe treatment resistant, OCD, Eating Disorder NOS Plan: Full ECT consultation completed today. Discussed case at length with Dr. Vazquez.He agreed that we are likely treating a bipolar spectrum illness.He agrees with restarting Lamictal, Titrating Seroquel, And discontinuing Cymbalta.I will use Prozac 40 mg a day for five days in order to circumvent Serotonin discontinuation syndrome.We will also use Seroquel in low doses as needed for anxiety in order to minimize use of benzodiazepine. She gives I/C for these changes understanding the metabolic risks and that of EPS/akithesia/ TD and rash/Odom Johnsons. Pt and I reviewed efficacy of ECT in TRD vs Med using Star D date to inform us. She understands The value of using maintenance ECT along with medication for up to a year after the acute course in order to minimize relapse risk to which one would be highly vulnerable in that first 6 to 12 months. In further discussing Her post discharge convalescent care, She felt that the use of an assisted living program would be bestIn order to minimize the burden on her family. Her brother is a professor of vegetable science and her sister in law works for the [employer] and I offered to use FMLA paperwork for either of them. Likewise, I encouraged the patient to receive FMLA paperwork from her own hospital so then I could fill it out for her Most time spent reviewing cognitive impact of ECT Including anterograde and retrograde amnesia, abulia, delirium, and we reviewed the notion of state dependent memory issues. We contrasted these mostly transitory problems with the much more globally impactful effects of her illness itself with its risk of self harm, nil quality of life, and cognitive impairment itself. I expressed hopefulness re her prognosis given severe vegetative symtoms, and relatively short duration (4-5 months) of this present episode. 05/31/16 15:12 Pt highly dyphoric and hopeless with SI. Has some capacity to feel hope around ECT, but worries that she will be in the perecent of patients that do not respond. Slept well with seroquel without akathisia. WIll increase to 150 mg. Underwent first ECT today at 50% (0.25 msec) and had short motor seizure. Will add theophylline 160 mg pre ECT. Affect constricted, PMR, poor eye contact, TP goal directed. TC pos SI/rumination/hopelessness. 06/01/16 12:04 06/02/16 17:17 Pt complained of bad, migrainous BUSBY post ECT, lasting until today, Rxed with her tryptan plus Ibuprofen. Will increase IV anti BUSBY meds tomorrow with ECT. She reports no clear changes in mood, but content writer shared with her that she looked a bit less tense and dysphoric and was making better eye contact. She minimized the significance of these observations and had a narrative for why she might look better but was really not. Stilll thus hopeless and feeling like this is her "last resort" with plan to suicide, she now states, if ECT does not work She met with brother and sister in law. Apparently they are quite happy to help her post discharge, despite her reluctance to let them do so. Assisted living for dispo remains a possibility. 06/02/16 17:19 06/03/16 13:48 Pt reports an abatement of seroquel related sedation after her second dose last night. Hence, will increase to 200 mg q hs. No rash with LMT. Affect still quite constricted, poor eye contact again today, +PMR, hopeless and with significant SI intent, with plan to if ECT "does not work." Rumination. self deprecation, guilt, sig cognitive deficits in exec functioning, attention and processing speed. Better motor seizure today with addition of theophylline. Anticipate no med changes over weekend. Coming off cymbalta, but using Prozac temporarily to prevent 5HT withdrawal symtoms. 06/06/16 13:52 Reviewed notes over weekend. Pt reports no clear benefit subjectively yet, but does appear to content writer to be less agitated, tense, dysphoric and constricted. Still quite impoverished in speech. Isolates. +PMR. Still hopeless and with SI but perhaps not quite as intensely. Still sedated with seroquel 200 mg but also sleeping soundly with it. Will further increase theophylline due to short motor seizure again today. Will increase LMT to 50 mg per titration schedule Objective: Vital Signs Temp Pulse Resp BP Pulse Ox 36.6 C 58 L 12 103/51 L 96 06/06/16 06:23 06/06/16 06:23 06/06/16 06:23 06/06/16 06:23 06/06/16 06:23 ICD10 Worksheet Patient Problems: Problems Problem Status Diagnosed Bipolar disorder Acute Eating disorder Acute Major depress dis, severe Acute OCD (obsessive compulsive disorder) Acute - ICD10 Problem Qualifiers (1) Bipolar disorder Qualifiers: Active/Remission status: currently active Current bipolar episode type : depressed Current episode severity: severe Psychotic features: without psychotic features Qualified Description: Bipolar disorder, current episode depressed, severe, without psychotic features Qualifier Code(s): ( F31.4) Bipolar disorder, current episode depressed, severe, without psychotic features (2) Major depress dis, severe (3) OCD (obsessive compulsive disorder) (4) Eating disorder
[2016-06-06] MEDS: CHOLECALCIFEROL VIT D3 1,000 UNITS TAB PO SCH (15:35)
[2016-06-06] MEDS: [UNRECOGNIZED DRUG - OTHER] PO SCH (15:38)
[2016-06-06] MEDS: NORGESTIMATE ETHINYL ESTRADIOL PO SCH (15:44)
[2016-06-06] MEDS: POLYETHYLENE GLYCOL 3350 17 GM PKT PO SCH (15:46)
[2016-06-06] MEDS: OMEGA-3 FATTY ACIDS 1,000 MG CAP PO SCH ×2 (15:46→21:50)
[2016-06-06] MEDS: valACYclovir 500 MG TAB PO SCH (15:47)
[2016-06-06] MEDS: CYANO/VITAMIN B12 1000 MCG TAB PO SCH (16:01)
[2016-06-06] MEDS: FLUoxetine 20 MG CAP PO SCH (16:27)
[2016-06-06] MEDS: IBUPROFEN 200 MG TAB PO PRN (20:41)
[2016-06-06] MEDS: lamoTRIgine 25 MG TAB PO SCH (21:51)
[2016-06-06] MEDS: QUEtiapine FUMARATE 200 MG TAB PO SCH (21:51)
[2016-06-06] MEDS: SUMAtriptan 50 MG TAB PO PRN (22:06)
[2016-06-07] MEDS: POLYETHYLENE GLYCOL 3350 17 GM PKT PO SCH (08:29)
[2016-06-07] MEDS: valACYclovir 500 MG TAB PO SCH (08:30)
[2016-06-07] MEDS: CHOLECALCIFEROL VIT D3 1,000 UNITS TAB PO SCH (08:30)
[2016-06-07] MEDS: OMEGA-3 FATTY ACIDS 1,000 MG CAP PO SCH ×2 (08:30→21:34)
[2016-06-07] MEDS: [UNRECOGNIZED DRUG - OTHER] PO SCH (09:03)
[2016-06-07] MEDS: NORGESTIMATE ETHINYL ESTRADIOL PO SCH (09:04)
[2016-06-07] MEDS: CYANO/VITAMIN B12 1000 MCG TAB PO SCH (09:04)
--- NOTE | 2016-06-07 16:10 | SOAPPROG ---
SOAP Progress Note Assessment/Plan: Assessment: Plan: 06/07/16 16:13 Remains quite depressed. CCM per Dr. Zuniga inc: continued acute course ECT. Subjective: Pt seen in coverage for Dr. Zuniga, discussed with staff. Reports feeling "really tired." Spends most of her time in bed, refusing most groups. Comes out for meals. Grooming marginal. Notes no problems with ECT thus far though no notable early benefit. Offers no other c/o's and has no needs or requests of me. Objective: Vital Signs Temp Pulse Resp BP Pulse Ox 36.8 C 66 14 93/46 L 97 06/07/16 06:00 06/07/16 06:00 06/07/16 06:00 06/07/16 06:00 06/07/16 06:00 MSE: Calm, coop. Lying in bed with face in pillows. Poor eye contact. Affect is blunted, dysphoric. Mood is "really depressed." TP linear. TC reveals no psychosis. Continues to endorse SI. - Time Spent With Patient Time Spent With Patient: 15" - Pending Discharge Pending Discharge Within 24 Hours: No Pending Discharge Within 48 Hours: No ICD10 Worksheet Patient Problems: Problems Problem Status Diagnosed Bipolar disorder Acute Eating disorder Acute Major depress dis, severe Acute OCD (obsessive compulsive disorder) Acute
[2016-06-07] MEDS: lamoTRIgine 25 MG TAB PO SCH (21:34)
[2016-06-07] MEDS: QUEtiapine FUMARATE 200 MG TAB PO SCH (21:34)
[2016-06-08] MEDS ORDERED: LIDOCAINE 2% 5 ML SDV ID ONE (04:00)
[2016-06-08] MEDS ORDERED: CITRIC ACID/SODIUM CITRATE 30 ML UDCUP PO ONE (04:00)
[2016-06-08] MEDS ORDERED: NS 500 ML IV ONE (04:00)
[2016-06-08] MEDS ORDERED: THEOPHYLLINE ORAL SOLUTION 80 MG/15 ML UDCUP PO ONE ×2 (04:00→08:00)
[2016-06-08] MEDS ORDERED: ONDANSETRON DISINTEGRATING 4 MG TAB PO ONE (04:00)
[2016-06-08] MEDS ORDERED: fentaNYL 100 MCG/2 ML INJ ONE (06:14)
[2016-06-08] MEDS ORDERED: MIDAZOLAM 2 MG/2 ML VIAL ONE (06:14)
[2016-06-08] MEDS ORDERED: GLYCOPYRROLATE 0.2 MG/1 ML VIAL ONE (06:15)
[2016-06-08] MEDS ORDERED: SUCCINYLCHOLINE CHLORIDE 200 MG/10 ML VIAL ONE (06:15)
[2016-06-08] MEDS ORDERED: ROCURONIUM 50 MG/5 ML VIAL ONE (06:15)
[2016-06-08] MEDS ORDERED: KETOROLAC 30 MG/1 ML SDV ONE (06:15)
[2016-06-08] MEDS ORDERED: ONDANSETRON 4 MG/2 ML VIAL ONE (06:15)
[2016-06-08] MEDS ORDERED: ETOMIDATE 20 MG/10 ML VIAL ONE (06:15)
[2016-06-08] MEDS ORDERED: HYDROCODONE/APAP 5/325 TAB PO PRN (09:52)
[2016-06-08] MEDS ORDERED: ONDANSETRON DISINTEGRATING 4 MG TAB PO PRN (09:52)
--- NOTE | 2016-06-08 10:08 | SOAPPROG ---
SOAP Progress Note Assessment/Plan: Assessment: Bipolar NOS v MDD, severe treatment resistant, OCD, Eating Disorder NOS Plan: Full ECT consultation completed today. Discussed case at length with Dr. Vazquez.He agreed that we are likely treating a bipolar spectrum illness.He agrees with restarting Lamictal, Titrating Seroquel, And discontinuing Cymbalta.I will use Prozac 40 mg a day for five days in order to circumvent Serotonin discontinuation syndrome.We will also use Seroquel in low doses as needed for anxiety in order to minimize use of benzodiazepine. She gives I/C for these changes understanding the metabolic risks and that of EPS/akithesia/ TD and rash/Odom Johnsons. Pt and I reviewed efficacy of ECT in TRD vs Med using Star D date to inform us. She understands The value of using maintenance ECT along with medication for up to a year after the acute course in order to minimize relapse risk to which one would be highly vulnerable in that first 6 to 12 months. In further discussing Her post discharge convalescent care, She felt that the use of an assisted living program would be bestIn order to minimize the burden on her family. Her brother is a professor of fine art and her sister in law works for the [employer] and I offered to use FMLA paperwork for either of them. Likewise, I encouraged the patient to receive FMLA paperwork from her own hospital so then I could fill it out for her Most time spent reviewing cognitive impact of ECT Including anterograde and retrograde amnesia, abulia, delirium, and we reviewed the notion of state dependent memory issues. We contrasted these mostly transitory problems with the much more globally impactful effects of her illness itself with its risk of self harm, nil quality of life, and cognitive impairment itself. I expressed hopefulness re her prognosis given severe vegetative symtoms, and relatively short duration (4-5 months) of this present episode. 05/31/16 15:12 Pt highly dyphoric and hopeless with SI. Has some capacity to feel hope around ECT, but worries that she will be in the perecent of patients that do not respond. Slept well with seroquel without akathisia. WIll increase to 150 mg. Underwent first ECT today at 50% (0.25 msec) and had short motor seizure. Will add theophylline 160 mg pre ECT. Affect constricted, PMR, poor eye contact, TP goal directed. TC pos SI/rumination/hopelessness. 06/01/16 12:04 06/02/16 17:17 Pt complained of bad, migrainous BUSBY post ECT, lasting until today, Rxed with her tryptan plus Ibuprofen. Will increase IV anti BUSBY meds tomorrow with ECT. She reports no clear changes in mood, but assembly instructions writer shared with her that she looked a bit less tense and dysphoric and was making better eye contact. She minimized the significance of these observations and had a narrative for why she might look better but was really not. Stilll thus hopeless and feeling like this is her "last resort" with plan to suicide, she now states, if ECT does not work She met with brother and sister in law. Apparently they are quite happy to help her post discharge, despite her reluctance to let them do so. Assisted living for dispo remains a possibility. 06/02/16 17:19 06/03/16 13:48 Pt reports an abatement of seroquel related sedation after her second dose last night. Hence, will increase to 200 mg q hs. No rash with LMT. Affect still quite constricted, poor eye contact again today, +PMR, hopeless and with significant SI intent, with plan to if ECT "does not work." Rumination. self deprecation, guilt, sig cognitive deficits in exec functioning, attention and processing speed. Better motor seizure today with addition of theophylline. Anticipate no med changes over weekend. Coming off cymbalta, but using Prozac temporarily to prevent 5HT withdrawal symtoms. 06/06/16 13:52 Reviewed notes over weekend. Pt reports no clear benefit subjectively yet, but does appear to assembly instructions writer to be less agitated, tense, dysphoric and constricted. Still quite impoverished in speech. Isolates. +PMR. Still hopeless and with SI but perhaps not quite as intensely. Still sedated with seroquel 200 mg but also sleeping soundly with it. Will further increase theophylline due to short motor seizure again today. Will increase LMT to 50 mg per titration schedule 06/08/16 10:06 Pt remains dysphroric, blunted, impov in speech and action, isolating, with poor eye contact. Does however appear less tense, tearful and agitated than upon admission. Still c/o of sedation with seroquel and hard sleep. Motor seizure 13 sec. Will increase theophylline to 360 AND hold hs LMT. No seratonin d/c symptoms reported. Cont acute ECT. COnt seroquel. May reduce dose IF sedation continues to persist. Objective: Vital Signs Temp Pulse Resp BP Pulse Ox 36.9 C 58 L 14 88/51 L 95 06/08/16 06:00 06/08/16 06:00 06/08/16 06:00 06/08/16 06:00 06/08/16 06:00 ICD10 Worksheet Patient Problems: Problems Problem Status Diagnosed Bipolar disorder Acute Eating disorder Acute Major depress dis, severe Acute OCD (obsessive compulsive disorder) Acute - ICD10 Problem Qualifiers (1) Bipolar disorder Qualifiers: Active/Remission status: currently active Current bipolar episode type : depressed Current episode severity: severe Psychotic features: without psychotic features Qualified Description: Bipolar disorder, current episode depressed, severe, without psychotic features Qualifier Code(s): ( F31.4) Bipolar disorder, current episode depressed, severe, without psychotic features (2) Major depress dis, severe (3) OCD (obsessive compulsive disorder) (4) Eating disorder
[2016-06-08] MEDS: CHOLECALCIFEROL VIT D3 1,000 UNITS TAB PO SCH (11:04)
[2016-06-08] MEDS: valACYclovir 500 MG TAB PO SCH (11:05)
[2016-06-08] MEDS: POLYETHYLENE GLYCOL 3350 17 GM PKT PO SCH (11:05)
[2016-06-08] MEDS: OMEGA-3 FATTY ACIDS 1,000 MG CAP PO SCH ×2 (11:05→21:14)
[2016-06-08] MEDS: NORGESTIMATE ETHINYL ESTRADIOL PO SCH (11:15)
[2016-06-08] MEDS: [UNRECOGNIZED DRUG - OTHER] PO SCH (11:16)
[2016-06-08] MEDS: CYANO/VITAMIN B12 1000 MCG TAB PO SCH (13:52)
--- NOTE | 2016-06-08 15:09 | SOAPPROG ---
SOAP Progress Note Assessment/Plan: Late entry for 06/04/2016 Assessment: 46yo CF with severe depression, recently started ECT Plan: -cont current meds and ECT as planned -voluntary 06/04/16 14:45 per staff, pt slept 5.5hrs. Isolative. Pt reports sleeping "a lot", feels Seroquel to be very sedating. Recent dose increase. Did not attend groups today. Denied SI today. No energy and poor concentration. Feels "numb", although notes "a little better yesterday after ECT ". Asks for 2nd dose of Miralax today for constipation. Only had 1 BM in the past week. Denied engaging in any eating d/o behaviors. Used to be very constipated 20 yrs ago when did struggle with eating disorder. denied other physical c/o or any other med s/e. Plans to continue with course of ECT as planned mse: cooperative, good eye contact, psychomotor retardation, low vol speech, nml rate, mood+depressed, "numb", affect: depressed, near-tearful. Denied current SI plan/intent, Denied any psychotic sxs. i/j-both seem good. A&Ox4. Objective: Vital Signs Temp Pulse Resp BP Pulse Ox 36.6 C 88 14 126/66 H 96 06/08/16 11:03 06/08/16 11:03 06/08/16 11:03 06/08/16 11:03 06/08/16 11:03 - Time Spent With Patient Time Spent With Patient: 25 minutes - Pending Discharge Pending Discharge Within 24 Hours: No Pending Discharge Within 48 Hours: No ICD10 Worksheet Patient Problems: Problems Problem Status Diagnosed Bipolar disorder Acute Eating disorder Acute Major depress dis, severe Acute OCD (obsessive compulsive disorder) Acute
[2016-06-08] MEDS: SUMAtriptan 50 MG TAB PO PRN (18:35)
[2016-06-08] MEDS: lamoTRIgine 25 MG TAB PO SCH (21:14)
[2016-06-08] MEDS: QUEtiapine FUMARATE 200 MG TAB PO SCH (21:14)
[2016-06-09] MEDS: CHOLECALCIFEROL VIT D3 1,000 UNITS TAB PO SCH (08:56)
[2016-06-09] MEDS: OMEGA-3 FATTY ACIDS 1,000 MG CAP PO SCH ×2 (08:56→21:00)
[2016-06-09] MEDS: POLYETHYLENE GLYCOL 3350 17 GM PKT PO SCH (08:57)
[2016-06-09] MEDS: CYANO/VITAMIN B12 1000 MCG TAB PO SCH (08:57)
[2016-06-09] MEDS: valACYclovir 500 MG TAB PO SCH (08:57)
[2016-06-09] MEDS: [UNRECOGNIZED DRUG - OTHER] PO SCH (09:19)
[2016-06-09] MEDS: NORGESTIMATE ETHINYL ESTRADIOL PO SCH (09:20)
--- NOTE | 2016-06-09 16:12 | SOAPPROG ---
SOAP Progress Note Assessment/Plan: Assessment: Plan: 06/07/16 16:13 Remains quite depressed. CCM per Dr. Zuniga inc: continued acute course ECT. 06/09/16 16:13 Remains very depressed. CCM. Subjective: Pt seen, discussed with staff. Reports feeling "very tired." RN entered pt's room and found her under the covers. She reportedly sat up abruptly and her face was red. RN was concerned for pt's safety and asked her to go to group. Pt complied and participated actively in group. I saw her immediately after group and asked her about the event and she denies any attempts at self-harm or self-injury. She repeatedly states she is "just really tired." I reviewed with her staff's perception that she was brighter yesterday afternoon and she acknowledges this as well. I also discussed how at this point in her treatment she may have some periods of improvement that are transient and not to be discouraged if her mood settles again. Objective: Vital Signs Temp Pulse Resp BP Pulse Ox 36.7 C 57 L 12 112/49 L 96 06/09/16 06:01 06/09/16 06:01 06/09/16 06:01 06/09/16 06:01 06/09/16 06:01 MSE: Appears somewhat guarded with stiff, closed body posture. Eye contact is poor. Affect is blunted, dysphoric. Mood is "tired." TP linear though abbreviated. TC reveals no overt psychosis though pt is guarded. SI persists. - Time Spent With Patient Time Spent With Patient: 25" - Pending Discharge Pending Discharge Within 24 Hours: No Pending Discharge Within 48 Hours: No ICD10 Worksheet Patient Problems: Problems Problem Status Diagnosed Bipolar disorder Acute Eating disorder Acute Major depress dis, severe Acute OCD (obsessive compulsive disorder) Acute
[2016-06-09] MEDS: QUEtiapine FUMARATE 200 MG TAB PO SCH (21:00)
[2016-06-10] MEDS ORDERED: CITRIC ACID/SODIUM CITRATE 30 ML UDCUP PO ONE (04:00)
[2016-06-10] MEDS ORDERED: LIDOCAINE 2% 5 ML SDV ID ONE (04:00)
[2016-06-10] MEDS ORDERED: NS 500 ML IV ONE (04:00)
[2016-06-10] MEDS ORDERED: ONDANSETRON DISINTEGRATING 4 MG TAB PO ONE (04:00)
[2016-06-10] MEDS ORDERED: THEOPHYLLINE ORAL SOLUTION 80 MG/15 ML UDCUP PO ONE ×2 (04:00→07:30)
[2016-06-10] MEDS ORDERED: MIDAZOLAM 2 MG/2 ML VIAL ONE (05:43)
[2016-06-10] MEDS ORDERED: fentaNYL 100 MCG/2 ML INJ ONE (05:43)
[2016-06-10] MEDS ORDERED: GLYCOPYRROLATE 0.2 MG/1 ML VIAL ONE (05:44)
[2016-06-10] MEDS ORDERED: SUCCINYLCHOLINE CHLORIDE 200 MG/10 ML VIAL ONE (05:44)
[2016-06-10] MEDS ORDERED: ETOMIDATE 20 MG/10 ML VIAL ONE (05:44)
[2016-06-10] MEDS ORDERED: ONDANSETRON 4 MG/2 ML VIAL ONE (05:44)
[2016-06-10] MEDS ORDERED: ROCURONIUM 50 MG/5 ML VIAL ONE (05:44)
[2016-06-10] MEDS ORDERED: KETOROLAC 30 MG/1 ML SDV ONE (05:44)
[2016-06-10] MEDS ORDERED: ONDANSETRON DISINTEGRATING 4 MG TAB ONE (09:32)
[2016-06-10] MEDS ORDERED: CITRIC ACID/SODIUM CITRATE 30 ML UDCUP ONE (09:32)
--- NOTE | 2016-06-10 09:49 | SOAPPROG ---
[id number]: continued acute course ECT. 06/09/16 16:13 Remains very depressed. CCM. 06/10/16 09:48 No change in clinical status thus far. CCM. Subjective: Pt seen, discussed with staff. Remains isolative, in bed a lot. Still showing significant psychomotor retardation and delay. Offers no c/o's. Underwent RUL ECT without complication. Objective: Vital Signs Temp Pulse Resp BP Pulse Ox 36.4 C 61 12 94/45 L 94 06/10/16 06:38 06/10/16 06:38 06/10/16 06:38 06/10/16 06:38 06/10/16 06:38 MSE: Closed body posture, retarded. Affect is blunted to flat, dysphoric. Mood is "depressed." TP delayed ten to twenty seconds on every response. TC reveals no overt psychosis. SI persists. - Time Spent With Patient Time Spent With Patient: 35" - Pending Discharge Pending Discharge Within 24 Hours: No Pending Discharge Within 48 Hours: No ICD10 Worksheet Patient Problems: Problems Problem Status Diagnosed Bipolar disorder Acute Eating disorder Acute Major depress dis, severe Acute OCD (obsessive compulsive disorder) Acute
[2016-06-10] MEDS: POLYETHYLENE GLYCOL 3350 17 GM PKT PO SCH (11:28)
[2016-06-10] MEDS: OMEGA-3 FATTY ACIDS 1,000 MG CAP PO SCH ×2 (11:28→21:39)
[2016-06-10] MEDS: CHOLECALCIFEROL VIT D3 1,000 UNITS TAB PO SCH (11:28)
[2016-06-10] MEDS: CYANO/VITAMIN B12 1000 MCG TAB PO SCH (11:29)
[2016-06-10] MEDS: valACYclovir 500 MG TAB PO SCH (11:29)
[2016-06-10] MEDS: SUMAtriptan 50 MG TAB PO PRN ×2 (11:47→17:44)
[2016-06-10] MEDS: [UNRECOGNIZED DRUG - OTHER] PO SCH (11:54)
[2016-06-10] MEDS: NORGESTIMATE ETHINYL ESTRADIOL PO SCH (11:55)
[2016-06-10] MEDS: QUEtiapine FUMARATE 200 MG TAB PO SCH (21:39)
[2016-06-10] MEDS: lamoTRIgine 25 MG TAB PO SCH (22:45)
[2016-06-11] MEDS: valACYclovir 500 MG TAB PO SCH (09:23)
[2016-06-11] MEDS: CHOLECALCIFEROL VIT D3 1,000 UNITS TAB PO SCH (09:23)
[2016-06-11] MEDS: OMEGA-3 FATTY ACIDS 1,000 MG CAP PO SCH ×2 (09:23→20:59)
[2016-06-11] MEDS: POLYETHYLENE GLYCOL 3350 17 GM PKT PO SCH (09:24)
[2016-06-11] MEDS: [UNRECOGNIZED DRUG - OTHER] PO SCH (09:27)
[2016-06-11] MEDS: NORGESTIMATE ETHINYL ESTRADIOL PO SCH (09:28)
--- NOTE | 2016-06-11 11:14 | SOAPPROG ---
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 Plan: -cont current meds and ECT as scheduled. - Pt interested in continuing uptitration of Lamictal. recently on 50mg feels sedated in AM after Seroquel 200mg at hs, will try to take earlier in evening -vol status -cont suicide precautions 06/11/16 11:09 per staff, slept 7.5 hrs continues isolating, continues on suicide precautions 06/11/16 18:56 Pt reports continued depression. "fatalistic" thoughts. So far, not sure if any benefit from ECT. no better/no worse. Still somewhat hopeful for it to work, though. But doesn't feel any options available to her if ineffective. Does feel it is better that she is in hosp for ECT, right now wouldn't have energy/ motivation for even ADLs if not in structured setting she feels. MSE: cooperative, fair eye contact, often with down gaze, psychomotor retardation, low vol speech, low/nml rate, mood+depressed, affect: restricted, depressed, near-tearful. Denied current SI plan/intent, Denied any psychotic sxs. i/j-both seem good. A&Ox4. Objective: Vital Signs Temp Pulse Resp BP Pulse Ox 36.3 C 57 L 14 110/56 L 95 06/11/16 06:00 06/11/16 06:00 06/11/16 06:00 06/11/16 06:00 06/11/16 06:00 - Time Spent With Patient Time Spent With Patient: 20 min - Pending Discharge Pending Discharge Within 24 Hours: No Pending Discharge Within 48 Hours: No ICD10 Worksheet Patient Problems: Problems Problem Status Diagnosed Bipolar disorder Acute Eating disorder Acute Major depress dis, severe Acute OCD (obsessive compulsive disorder) Acute
[2016-06-11] MEDS: CYANO/VITAMIN B12 1000 MCG TAB PO SCH (15:24)
[2016-06-11] MEDS: lamoTRIgine 25 MG TAB PO SCH (20:59)
[2016-06-11] MEDS: QUEtiapine FUMARATE 200 MG TAB PO SCH (21:00)
[2016-06-12] MEDS: valACYclovir 500 MG TAB PO SCH (08:44)
[2016-06-12] MEDS: CHOLECALCIFEROL VIT D3 1,000 UNITS TAB PO SCH (08:44)
[2016-06-12] MEDS: POLYETHYLENE GLYCOL 3350 17 GM PKT PO SCH (08:44)
[2016-06-12] MEDS: OMEGA-3 FATTY ACIDS 1,000 MG CAP PO SCH ×2 (08:44→21:42)
[2016-06-12] MEDS: CYANO/VITAMIN B12 1000 MCG TAB PO SCH (09:08)
[2016-06-12] MEDS: [UNRECOGNIZED DRUG - OTHER] PO SCH (09:14)
[2016-06-12] MEDS: NORGESTIMATE ETHINYL ESTRADIOL PO SCH (09:34)
--- NOTE | 2016-06-12 16:03 | SOAPPROG ---
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 Plan: - ECT as scheduled. - cont Lamictal 50mg qhs, seroquel 200mg qhs. -vol status -cont suicide precautions 06/11/16 11:09 per staff, slept 7.5 hrs continues isolating, continues on suicide precautions 06/11/16 18:56 Pt reports continued depression. "fatalistic" thoughts. So far, not sure if any benefit from ECT. no better/no worse. Still somewhat hopeful for it to work, though. But doesn't feel any options available to her if ineffective. Does feel it is better that she is in hosp for ECT, right now wouldn't have energy/ motivation for even ADLs if not in structured setting she feels. MSE: cooperative, fair eye contact, often with down gaze, psychomotor retardation, low vol speech, low/nml rate, mood+depressed, affect: restricted, depressed, near-tearful. Denied current SI plan/intent, Denied any psychotic sxs. i/j-both seem good. A&Ox4. 06/12/16 16:04 per [facility], slept 9.5 hr last night. affect appeared overall brighter, still with psychomotor retardation. talked with care director rn yesterday about family, work etc. on interview, pt reports feeling better today. smiling a lot. "best friend" of 15yrs visited (apparently this was her ex boyfriend) and also her brother. denied any new concerns/issues. denied engaging in any eating d/o behaviors. no thought d/o noted. no current plan/intent to harm self. conversationally cognitively intact. Objective: Vital Signs Temp Pulse Resp BP Pulse Ox 36.4 C 56 L 12 108/57 L 98 06/12/16 06:00 06/12/16 06:00 06/12/16 06:00 06/12/16 06:00 06/12/16 06:00 - Time Spent With Patient Time Spent With Patient: 15 min - Pending Discharge Pending Discharge Within 24 Hours: No Pending Discharge Within 48 Hours: No ICD10 Worksheet Patient Problems: Problems Problem Status Diagnosed Bipolar disorder Acute Eating disorder Acute Major depress dis, severe Acute OCD (obsessive compulsive disorder) Acute
[2016-06-12] MEDS: lamoTRIgine 25 MG TAB PO SCH (21:42)
[2016-06-12] MEDS: QUEtiapine FUMARATE 200 MG TAB PO SCH (21:43)
[2016-06-13] MEDS ORDERED: THEOPHYLLINE ORAL SOLUTION 80 MG/15 ML UDCUP PO ONE ×2 (04:00→09:00)
[2016-06-13] MEDS ORDERED: LIDOCAINE 2% 5 ML SDV ID ONE (04:00)
[2016-06-13] MEDS ORDERED: ONDANSETRON DISINTEGRATING 4 MG TAB PO ONE (04:00)
[2016-06-13] MEDS ORDERED: NS 500 ML IV ONE (04:00)
[2016-06-13] MEDS ORDERED: CITRIC ACID/SODIUM CITRATE 30 ML UDCUP PO ONE (04:00)
[2016-06-13] MEDS ORDERED: MIDAZOLAM 2 MG/2 ML VIAL ONE (05:21)
[2016-06-13] MEDS ORDERED: ETOMIDATE 20 MG/10 ML VIAL ONE (05:21)
[2016-06-13] MEDS ORDERED: fentaNYL 100 MCG/2 ML INJ ONE (05:21)
[2016-06-13] MEDS ORDERED: GLYCOPYRROLATE 0.2 MG/1 ML VIAL ONE (05:21)
[2016-06-13] MEDS ORDERED: ONDANSETRON 4 MG/2 ML VIAL ONE (05:21)
[2016-06-13] MEDS ORDERED: KETOROLAC 30 MG/1 ML SDV ONE (05:21)
[2016-06-13] MEDS ORDERED: ROCURONIUM 50 MG/5 ML VIAL ONE (05:22)
[2016-06-13] MEDS ORDERED: SUCCINYLCHOLINE CHLORIDE 200 MG/10 ML VIAL ONE (05:22)
[2016-06-13] MEDS ORDERED: THEOPHYLLINE ORAL SOLUTION 80 MG/15 ML UDCUP ONE (08:40)
[2016-06-13] MEDS ORDERED: ONDANSETRON DISINTEGRATING 4 MG TAB ONE (09:28)
[2016-06-13] MEDS ORDERED: CITRIC ACID/SODIUM CITRATE 30 ML UDCUP ONE (09:28)
--- NOTE | 2016-06-13 11:18 | SOAPPROG ---
SOAP Progress Note Assessment/Plan: Assessment: Plan: 06/07/16 16:13 Remains quite depressed. CCM per Dr. Zuniga inc: continued acute course ECT. 06/09/16 16:13 Remains very depressed. CCM. 06/10/16 09:48 No change in clinical status thus far. CCM. 06/13/16 11:18 Remains depressed though objectively improving. Will CCM, consider change to bilateral treatment. Subjective: Pt seen, discussed with staff. Reports feeling "about the same." Mood remains low and she continues to largely isolate in her room. She reports that others inc: family have noticed improvement in her though she has not. Tolerating ECT and meds well. Underwent RUL ECT today without complication. Objective: Vital Signs Temp Pulse Resp BP Pulse Ox 36.6 C 88 13 116/70 97 06/13/16 10:30 06/13/16 10:30 06/13/16 10:30 06/13/16 10:30 06/13/16 10:30 MSE: Guarded, anxious appearing. Affect is constricted, dysphoric. Mood is "about the same, depressed." TP linear with less delay. TC reveals no overt psychosis. SI persists. - Time Spent With Patient Time Spent With Patient: 35" - Pending Discharge Pending Discharge Within 24 Hours: No Pending Discharge Within 48 Hours: No ICD10 Worksheet Patient Problems: Problems Problem Status Diagnosed Bipolar disorder Acute Eating disorder Acute Major depress dis, severe Acute OCD (obsessive compulsive disorder) Acute
[2016-06-13] MEDS: OMEGA-3 FATTY ACIDS 1,000 MG CAP PO SCH ×2 (12:55→21:41)
[2016-06-13] MEDS: CYANO/VITAMIN B12 1000 MCG TAB PO SCH (12:55)
[2016-06-13] MEDS: POLYETHYLENE GLYCOL 3350 17 GM PKT PO SCH (12:55)
[2016-06-13] MEDS: valACYclovir 500 MG TAB PO SCH (12:55)
[2016-06-13] MEDS: CHOLECALCIFEROL VIT D3 1,000 UNITS TAB PO SCH (12:55)
[2016-06-13] MEDS: NORGESTIMATE ETHINYL ESTRADIOL PO SCH (12:57)
[2016-06-13] MEDS: [UNRECOGNIZED DRUG - OTHER] PO SCH (12:57)
[2016-06-13] MEDS: (Rizatriptan Benzoate [Maxalt] 10 MG) PO PRN (14:45)
[2016-06-13] MEDS: HYDROCORTISONE 1% CREAM TP PRN (21:03)
[2016-06-13] MEDS: QUEtiapine FUMARATE 200 MG TAB PO SCH (21:41)
[2016-06-13] MEDS: lamoTRIgine 25 MG TAB PO SCH (21:41)
[2016-06-14] MEDS: POLYETHYLENE GLYCOL 3350 17 GM PKT PO SCH (10:06)
[2016-06-14] MEDS: CHOLECALCIFEROL VIT D3 1,000 UNITS TAB PO SCH (10:07)
[2016-06-14] MEDS: CYANO/VITAMIN B12 1000 MCG TAB PO SCH (10:07)
[2016-06-14] MEDS: valACYclovir 500 MG TAB PO SCH (10:10)
[2016-06-14] MEDS: OMEGA-3 FATTY ACIDS 1,000 MG CAP PO SCH ×2 (10:11→21:18)
[2016-06-14] MEDS: [UNRECOGNIZED DRUG - OTHER] PO SCH (10:48)
[2016-06-14] MEDS: NORGESTIMATE ETHINYL ESTRADIOL PO SCH (10:49)
[2016-06-14] MEDS ORDERED: QUEtiapine FUMARATE 200 MG TAB PO SCH (16:19)
--- NOTE | 2016-06-14 16:28 | SOAPPROG ---
SOAP Progress Note Assessment/Plan: Assessment: Bipolar NOS v MDD, severe treatment resistant, OCD, Eating Disorder NOS Plan: Full ECT consultation completed today. Discussed case at length with Dr. Vazquez.He agreed that we are likely treating a bipolar spectrum illness.He agrees with restarting Lamictal, Titrating Seroquel, And discontinuing Cymbalta.I will use Prozac 40 mg a day for five days in order to circumvent Serotonin discontinuation syndrome.We will also use Seroquel in low doses as needed for anxiety in order to minimize use of benzodiazepine. She gives I/C for these changes understanding the metabolic risks and that of EPS/akithesia/ TD and rash/Odom Johnsons. Pt and I reviewed efficacy of ECT in TRD vs Med using Star D date to inform us. She understands The value of using maintenance ECT along with medication for up to a year after the acute course in order to minimize relapse risk to which one would be highly vulnerable in that first 6 to 12 months. In further discussing Her post discharge convalescent care, She felt that the use of an assisted living program would be bestIn order to minimize the burden on her family. Her brother is a criminal justice professor and her sister in law works for the [employer] and I offered to use FMLA paperwork for either of them. Likewise, I encouraged the patient to receive FMLA paperwork from her own hospital so then I could fill it out for her Most time spent reviewing cognitive impact of ECT Including anterograde and retrograde amnesia, abulia, delirium, and we reviewed the notion of state dependent memory issues. We contrasted these mostly transitory problems with the much more globally impactful effects of her illness itself with its risk of self harm, nil quality of life, and cognitive impairment itself. I expressed hopefulness re her prognosis given severe vegetative symtoms, and relatively short duration (4-5 months) of this present episode. 05/31/16 15:12 Pt highly dyphoric and hopeless with SI. Has some capacity to feel hope around ECT, but worries that she will be in the perecent of patients that do not respond. Slept well with seroquel without akathisia. WIll increase to 150 mg. Underwent first ECT today at 50% (0.25 msec) and had short motor seizure. Will add theophylline 160 mg pre ECT. Affect constricted, PMR, poor eye contact, TP goal directed. TC pos SI/rumination/hopelessness. 06/01/16 12:04 06/02/16 17:17 Pt complained of bad, migrainous BUSBY post ECT, lasting until today, Rxed with her tryptan plus Ibuprofen. Will increase IV anti BUSBY meds tomorrow with ECT. She reports no clear changes in mood, but business writer shared with her that she looked a bit less tense and dysphoric and was making better eye contact. She minimized the significance of these observations and had a narrative for why she might look better but was really not. Stilll thus hopeless and feeling like this is her "last resort" with plan to suicide, she now states, if ECT does not work She met with brother and sister in law. Apparently they are quite happy to help her post discharge, despite her reluctance to let them do so. Assisted living for dispo remains a possibility. 06/02/16 17:19 06/03/16 13:48 Pt reports an abatement of seroquel related sedation after her second dose last night. Hence, will increase to 200 mg q hs. No rash with LMT. Affect still quite constricted, poor eye contact again today, +PMR, hopeless and with significant SI intent, with plan to if ECT "does not work." Rumination. self deprecation, guilt, sig cognitive deficits in exec functioning, attention and processing speed. Better motor seizure today with addition of theophylline. Anticipate no med changes over weekend. Coming off cymbalta, but using Prozac temporarily to prevent 5HT withdrawal symtoms. 06/06/16 13:52 Reviewed notes over weekend. Pt reports no clear benefit subjectively yet, but does appear to business writer to be less agitated, tense, dysphoric and constricted. Still quite impoverished in speech. Isolates. +PMR. Still hopeless and with SI but perhaps not quite as intensely. Still sedated with seroquel 200 mg but also sleeping soundly with it. Will further increase theophylline due to short motor seizure again today. Will increase LMT to 50 mg per titration schedule 06/08/16 10:06 Pt remains dysphroric, blunted, impov in speech and action, isolating, with poor eye contact. Does however appear less tense, tearful and agitated than upon admission. Still c/o of sedation with seroquel and hard sleep. Motor seizure 13 sec. Will increase theophylline to 360 AND hold hs LMT. No seratonin d/c symptoms reported. Cont acute ECT. COnt seroquel. May reduce dose IF sedation continues to persist. 06/14/16 16:22 Reviewed cx over last 6 days. Appears a bit brighter to MD upon walking into her room mid afternoon, as she smiled widely. However, quickly it became clear that subjectively she remains no better and even remains hopeless with SI. Eye contact intermittant. Impover. speech. Limited one or two word answers. Judgement/Insight/Exec funct. impaired. Still no real progress for instance, on post D/C planning. She was asked whether she would do Assist. Living or Care from Family, to which she said the latter, as Sister in law can "bring me one or two times a week." I indicated that that was inadequate and likened it to a patient declaring they would take 5 days of their 10 day course of antibx and take the remainder sporadically. She nodded, as if she understood analogy. This disengagement from her care speaks to level of depression being quite severe still. I shall call family tomorrow and finalize what they are willing/ able to do and if it less than 3x/week AND 24/7 supervision, she will need Assisted Living. For now, she is still too ill for either dispo, and represents an ongoing suicide risk. Will decrease Seroquel dose as she still c/ o daytime sedatiion. Will consider ketamine or Bilateral ECT Objective: Vital Signs Temp Pulse Resp BP Pulse Ox 36.4 C 59 L 12 108/55 L 96 06/14/16 06:00 06/14/16 06:00 06/14/16 06:00 06/14/16 06:00 06/14/16 06:00 ICD10 Worksheet Patient Problems: Problems Problem Status Diagnosed Bipolar disorder Acute Eating disorder Acute Major depress dis, severe Acute OCD (obsessive compulsive disorder) Acute - ICD10 Problem Qualifiers (1) Bipolar disorder Qualifiers: Qualified Description: Bipolar disorder, current episode depressed, severe , without psychotic features Qualifier Code(s): (F31.4) Bipolar disorder, current episode depressed, severe, without psychotic features (2) Major depress dis, severe (3) OCD (obsessive compulsive disorder) (4) Eating disorder
[2016-06-14] MEDS: QUEtiapine FUMARATE 100 MG TAB PO SCH (21:19)
[2016-06-15] MEDS ORDERED: NS 500 ML IV ONE (04:00)
[2016-06-15] MEDS ORDERED: ONDANSETRON DISINTEGRATING 4 MG TAB PO ONE (04:00)
[2016-06-15] MEDS ORDERED: CITRIC ACID/SODIUM CITRATE 30 ML UDCUP PO ONE (04:00)
[2016-06-15] MEDS ORDERED: THEOPHYLLINE ORAL SOLUTION 80 MG/15 ML UDCUP PO ONE ×2 (04:00→11:00)
[2016-06-15] MEDS ORDERED: LIDOCAINE 2% 5 ML SDV ID ONE (04:00)
[2016-06-15] MEDS ORDERED: GLYCOPYRROLATE 0.2 MG/1 ML VIAL ONE (05:59)
[2016-06-15] MEDS ORDERED: KETOROLAC 30 MG/1 ML SDV ONE (05:59)
[2016-06-15] MEDS ORDERED: ROCURONIUM 50 MG/5 ML VIAL ONE (05:59)
[2016-06-15] MEDS ORDERED: ETOMIDATE 20 MG/10 ML VIAL ONE (05:59)
[2016-06-15] MEDS ORDERED: ONDANSETRON 4 MG/2 ML VIAL ONE (05:59)
[2016-06-15] MEDS ORDERED: fentaNYL 100 MCG/2 ML INJ ONE (05:59)
[2016-06-15] MEDS ORDERED: MIDAZOLAM 2 MG/2 ML VIAL ONE (05:59)
[2016-06-15] MEDS ORDERED: SUCCINYLCHOLINE CHLORIDE 200 MG/10 ML VIAL ONE (05:59)
[2016-06-15] MEDS: POLYETHYLENE GLYCOL 3350 17 GM PKT PO SCH (10:13)
[2016-06-15] MEDS: CHOLECALCIFEROL VIT D3 1,000 UNITS TAB PO SCH (10:20)
[2016-06-15] MEDS: OMEGA-3 FATTY ACIDS 1,000 MG CAP PO SCH ×2 (10:21→21:50)
[2016-06-15] MEDS: NORGESTIMATE ETHINYL ESTRADIOL PO SCH (10:23)
[2016-06-15] MEDS: valACYclovir 500 MG TAB PO SCH (10:25)
[2016-06-15] MEDS: [UNRECOGNIZED DRUG - OTHER] PO SCH (10:30)
[2016-06-15] MEDS: CYANO/VITAMIN B12 1000 MCG TAB PO SCH (10:33)
[2016-06-15] MEDS: ISOTRETINOIN 40 MG PO SCH (11:46)
[2016-06-15] MEDS ORDERED: ONDANSETRON DISINTEGRATING 4 MG TAB ONE (13:29)
[2016-06-15] MEDS ORDERED: CITRIC ACID/SODIUM CITRATE 30 ML UDCUP ONE (13:29)
[2016-06-15] MEDS ORDERED: ONDANSETRON DISINTEGRATING 4 MG TAB PO PRN (14:05)
[2016-06-15] MEDS ORDERED: HYDROCODONE/APAP 5/325 TAB PO PRN (14:05)
--- NOTE | 2016-06-15 14:28 | SOAPPROG ---
SOAP Progress Note Assessment/Plan: Assessment: Bipolar NOS v MDD, severe treatment resistant, OCD, Eating Disorder NOS Plan: Full ECT consultation completed today. Discussed case at length with Dr. Vazquez.He agreed that we are likely treating a bipolar spectrum illness.He agrees with restarting Lamictal, Titrating Seroquel, And discontinuing Cymbalta.I will use Prozac 40 mg a day for five days in order to circumvent Serotonin discontinuation syndrome.We will also use Seroquel in low doses as needed for anxiety in order to minimize use of benzodiazepine. She gives I/C for these changes understanding the metabolic risks and that of EPS/akithesia/ TD and rash/Odom Johnsons. Pt and I reviewed efficacy of ECT in TRD vs Med using Star D date to inform us. She understands The value of using maintenance ECT along with medication for up to a year after the acute course in order to minimize relapse risk to which one would be highly vulnerable in that first 6 to 12 months. In further discussing Her post discharge convalescent care, She felt that the use of an assisted living program would be bestIn order to minimize the burden on her family. Her brother is a physics department chair and her sister in law works for the [employer] and I offered to use FMLA paperwork for either of them. Likewise, I encouraged the patient to receive FMLA paperwork from her own hospital so then I could fill it out for her Most time spent reviewing cognitive impact of ECT Including anterograde and retrograde amnesia, abulia, delirium, and we reviewed the notion of state dependent memory issues. We contrasted these mostly transitory problems with the much more globally impactful effects of her illness itself with its risk of self harm, nil quality of life, and cognitive impairment itself. I expressed hopefulness re her prognosis given severe vegetative symtoms, and relatively short duration (4-5 months) of this present episode. 05/31/16 15:12 Pt highly dyphoric and hopeless with SI. Has some capacity to feel hope around ECT, but worries that she will be in the perecent of patients that do not respond. Slept well with seroquel without akathisia. WIll increase to 150 mg. Underwent first ECT today at 50% (0.25 msec) and had short motor seizure. Will add theophylline 160 mg pre ECT. Affect constricted, PMR, poor eye contact, TP goal directed. TC pos SI/rumination/hopelessness. 06/01/16 12:04 06/02/16 17:17 Pt complained of bad, migrainous BUSBY post ECT, lasting until today, Rxed with her tryptan plus Ibuprofen. Will increase IV anti BUSBY meds tomorrow with ECT. She reports no clear changes in mood, but specification writer shared with her that she looked a bit less tense and dysphoric and was making better eye contact. She minimized the significance of these observations and had a narrative for why she might look better but was really not. Stilll thus hopeless and feeling like this is her "last resort" with plan to suicide, she now states, if ECT does not work She met with brother and sister in law. Apparently they are quite happy to help her post discharge, despite her reluctance to let them do so. Assisted living for dispo remains a possibility. 06/02/16 17:19 06/03/16 13:48 Pt reports an abatement of seroquel related sedation after her second dose last night. Hence, will increase to 200 mg q hs. No rash with LMT. Affect still quite constricted, poor eye contact again today, +PMR, hopeless and with significant SI intent, with plan to if ECT "does not work." Rumination. self deprecation, guilt, sig cognitive deficits in exec functioning, attention and processing speed. Better motor seizure today with addition of theophylline. Anticipate no med changes over weekend. Coming off cymbalta, but using Prozac temporarily to prevent 5HT withdrawal symtoms. 06/06/16 13:52 Reviewed notes over weekend. Pt reports no clear benefit subjectively yet, but does appear to specification writer to be less agitated, tense, dysphoric and constricted. Still quite impoverished in speech. Isolates. +PMR. Still hopeless and with SI but perhaps not quite as intensely. Still sedated with seroquel 200 mg but also sleeping soundly with it. Will further increase theophylline due to short motor seizure again today. Will increase LMT to 50 mg per titration schedule 06/08/16 10:06 Pt remains dysphroric, blunted, impov in speech and action, isolating, with poor eye contact. Does however appear less tense, tearful and agitated than upon admission. Still c/o of sedation with seroquel and hard sleep. Motor seizure 13 sec. Will increase theophylline to 360 AND hold hs LMT. No seratonin d/c symptoms reported. Cont acute ECT. COnt seroquel. May reduce dose IF sedation continues to persist. 06/14/16 16:22 Reviewed cx over last 6 days. Appears a bit brighter to MD upon walking into her room mid afternoon, as she smiled widely. However, quickly it became clear that subjectively she remains no better and even remains hopeless with SI. Eye contact intermittant. Impover. speech. Limited one or two word answers. Judgement/Insight/Exec funct. impaired. Still no real progress for instance, on post D/C planning. She was asked whether she would do Assist. Living or Care from Family, to which she said the latter, as Sister in law can "bring me one or two times a week." I indicated that that was inadequate and likened it to a patient declaring they would take 5 days of their 10 day course of antibx and take the remainder sporadically. She nodded, as if she understood analogy. This disengagement from her care speaks to level of depression being quite severe still. I shall call family tomorrow and finalize what they are willing/ able to do and if it less than 3x/week AND 24/7 supervision, she will need Assisted Living. For now, she is still too ill for either dispo, and represents an ongoing suicide risk. Will decrease Seroquel dose as she still c/ o daytime sedatiion. Will consider ketamine or Bilateral ECT 06/15/16 14:28 Clinically, unchanged from yestday. A bit less sedated, per pt, with reduction in seroquel. Still, with prominent dysphoria, impovershiment, blunting, impaired eye contact, etc. SOunds like brother and sister in law can aid pt over holiday with 24/7 supervision Still weighing ketamine and Bilateral; Objective: Vital Signs Temp Pulse Resp BP Pulse Ox 36.4 C 62 12 98/66 L 96 06/15/16 06:00 06/15/16 06:00 06/15/16 06:00 06/15/16 06:00 06/15/16 06:00 ICD10 Worksheet Patient Problems: Problems Problem Status Diagnosed Bipolar disorder Acute Eating disorder Acute Major depress dis, severe Acute OCD (obsessive compulsive disorder) Acute - ICD10 Problem Qualifiers (1) Bipolar disorder Qualifiers: Qualified Description: Bipolar disorder, current episode depressed, severe , without psychotic features Qualifier Code(s): (F31.4) Bipolar disorder, current episode depressed, severe, without psychotic features (2) Major depress dis, severe (3) OCD (obsessive compulsive disorder) (4) Eating disorder
[2016-06-15] MEDS: SUMAtriptan 50 MG TAB PO PRN (15:56)
[2016-06-15] MEDS: HYDROCORTISONE 1% CREAM TP PRN (20:41)
[2016-06-15] MEDS: QUEtiapine FUMARATE 100 MG TAB PO SCH (21:50)
[2016-06-16] MEDS: POLYETHYLENE GLYCOL 3350 17 GM PKT PO SCH (09:08)
[2016-06-16] MEDS: CYANO/VITAMIN B12 1000 MCG TAB PO SCH (09:09)
[2016-06-16] MEDS: valACYclovir 500 MG TAB PO SCH (09:09)
[2016-06-16] MEDS: OMEGA-3 FATTY ACIDS 1,000 MG CAP PO SCH ×2 (09:09→21:36)
[2016-06-16] MEDS: CHOLECALCIFEROL VIT D3 1,000 UNITS TAB PO SCH (09:18)
[2016-06-16] MEDS: ISOTRETINOIN 40 MG PO SCH (09:30)
[2016-06-16] MEDS: NORGESTIMATE ETHINYL ESTRADIOL PO SCH (09:31)
--- NOTE | 2016-06-16 14:42 | SOAPPROG ---
SOAP Progress Note Assessment/Plan: Assessment: Bipolar NOS v MDD, severe treatment resistant, OCD, Eating Disorder NOS Plan: Full ECT consultation completed today. Discussed case at length with Dr. Vazquez.He agreed that we are likely treating a bipolar spectrum illness.He agrees with restarting Lamictal, Titrating Seroquel, And discontinuing Cymbalta.I will use Prozac 40 mg a day for five days in order to circumvent Serotonin discontinuation syndrome.We will also use Seroquel in low doses as needed for anxiety in order to minimize use of benzodiazepine. She gives I/C for these changes understanding the metabolic risks and that of EPS/akithesia/ TD and rash/Odom Johnsons. Pt and I reviewed efficacy of ECT in TRD vs Med using Star D date to inform us. She understands The value of using maintenance ECT along with medication for up to a year after the acute course in order to minimize relapse risk to which one would be highly vulnerable in that first 6 to 12 months. In further discussing Her post discharge convalescent care, She felt that the use of an assisted living program would be bestIn order to minimize the burden on her family. Her brother is a applied marine physics professor and her sister in law works for the [employer] and I offered to use FMLA paperwork for either of them. Likewise, I encouraged the patient to receive FMLA paperwork from her own hospital so then I could fill it out for her Most time spent reviewing cognitive impact of ECT Including anterograde and retrograde amnesia, abulia, delirium, and we reviewed the notion of state dependent memory issues. We contrasted these mostly transitory problems with the much more globally impactful effects of her illness itself with its risk of self harm, nil quality of life, and cognitive impairment itself. I expressed hopefulness re her prognosis given severe vegetative symtoms, and relatively short duration (4-5 months) of this present episode. 05/31/16 15:12 Pt highly dyphoric and hopeless with SI. Has some capacity to feel hope around ECT, but worries that she will be in the perecent of patients that do not respond. Slept well with seroquel without akathisia. WIll increase to 150 mg. Underwent first ECT today at 50% (0.25 msec) and had short motor seizure. Will add theophylline 160 mg pre ECT. Affect constricted, PMR, poor eye contact, TP goal directed. TC pos SI/rumination/hopelessness. 06/01/16 12:04 06/02/16 17:17 Pt complained of bad, migrainous BUSBY post ECT, lasting until today, Rxed with her tryptan plus Ibuprofen. Will increase IV anti BUSBY meds tomorrow with ECT. She reports no clear changes in mood, but justowriter operator shared with her that she looked a bit less tense and dysphoric and was making better eye contact. She minimized the significance of these observations and had a narrative for why she might look better but was really not. Stilll thus hopeless and feeling like this is her "last resort" with plan to suicide, she now states, if ECT does not work She met with brother and sister in law. Apparently they are quite happy to help her post discharge, despite her reluctance to let them do so. Assisted living for dispo remains a possibility. 06/02/16 17:19 06/03/16 13:48 Pt reports an abatement of seroquel related sedation after her second dose last night. Hence, will increase to 200 mg q hs. No rash with LMT. Affect still quite constricted, poor eye contact again today, +PMR, hopeless and with significant SI intent, with plan to if ECT "does not work." Rumination. self deprecation, guilt, sig cognitive deficits in exec functioning, attention and processing speed. Better motor seizure today with addition of theophylline. Anticipate no med changes over weekend. Coming off cymbalta, but using Prozac temporarily to prevent 5HT withdrawal symtoms. 06/06/16 13:52 Reviewed notes over weekend. Pt reports no clear benefit subjectively yet, but does appear to justowriter operator to be less agitated, tense, dysphoric and constricted. Still quite impoverished in speech. Isolates. +PMR. Still hopeless and with SI but perhaps not quite as intensely. Still sedated with seroquel 200 mg but also sleeping soundly with it. Will further increase theophylline due to short motor seizure again today. Will increase LMT to 50 mg per titration schedule 06/08/16 10:06 Pt remains dysphroric, blunted, impov in speech and action, isolating, with poor eye contact. Does however appear less tense, tearful and agitated than upon admission. Still c/o of sedation with seroquel and hard sleep. Motor seizure 13 sec. Will increase theophylline to 360 AND hold hs LMT. No seratonin d/c symptoms reported. Cont acute ECT. COnt seroquel. May reduce dose IF sedation continues to persist. 06/14/16 16:22 Reviewed cx over last 6 days. Appears a bit brighter to MD upon walking into her room mid afternoon, as she smiled widely. However, quickly it became clear that subjectively she remains no better and even remains hopeless with SI. Eye contact intermittant. Impover. speech. Limited one or two word answers. Judgement/Insight/Exec funct. impaired. Still no real progress for instance, on post D/C planning. She was asked whether she would do Assist. Living or Care from Family, to which she said the latter, as Sister in law can "bring me one or two times a week." I indicated that that was inadequate and likened it to a patient declaring they would take 5 days of their 10 day course of antibx and take the remainder sporadically. She nodded, as if she understood analogy. This disengagement from her care speaks to level of depression being quite severe still. I shall call family tomorrow and finalize what they are willing/ able to do and if it less than 3x/week AND 24/7 supervision, she will need Assisted Living. For now, she is still too ill for either dispo, and represents an ongoing suicide risk. Will decrease Seroquel dose as she still c/ o daytime sedatiion. Will consider ketamine or Bilateral ECT 06/15/16 14:28 Clinically, unchanged from yestday. A bit less sedated, per pt, with reduction in seroquel. Still, with prominent dysphoria, impovershiment, blunting, impaired eye contact, etc. SOunds like brother and sister in law can aid pt over holiday with 24/7 supervision Still weighing ketamine and Bilateral; 06/16/16 14:39 Pt out in dayroom, in rocking chair, rocking back and forth. Odd smile, less impoverished but had halting speech and word finding difficulties as she attempted to explain the insurance SNAFU that will keep her from being able to see her old therapist. Discussed dispo plan with pt and CC present. Sleep ok. Less sedated on less seroquel. SUbjectively, still dysphoric and hopeless, c/w her lack of any subjective improvement in mood. Cont acute ECT. Consider ketamine v bilateral. Objective: Vital Signs Temp Pulse Resp BP Pulse Ox 36.4 C 72 12 103/56 L 95 06/16/16 04:02 06/16/16 04:02 06/16/16 04:02 06/16/16 04:02 06/16/16 04:02 ICD10 Worksheet Patient Problems: Problems Problem Status Diagnosed Bipolar disorder Acute Eating disorder Acute Major depress dis, severe Acute OCD (obsessive compulsive disorder) Acute - ICD10 Problem Qualifiers (1) Bipolar disorder Qualifiers: Qualified Description: Bipolar disorder, current episode depressed, severe , without psychotic features Qualifier Code(s): (F31.4) Bipolar disorder, current episode depressed, severe, without psychotic features (2) Major depress dis, severe (3) OCD (obsessive compulsive disorder) (4) Eating disorder
[2016-06-16] MEDS: QUEtiapine FUMARATE 100 MG TAB PO SCH (21:36)
[2016-06-17] MEDS ORDERED: CITRIC ACID/SODIUM CITRATE 30 ML UDCUP PO ONE (04:00)
[2016-06-17] MEDS ORDERED: ONDANSETRON DISINTEGRATING 4 MG TAB PO ONE (04:00)
[2016-06-17] MEDS ORDERED: NS 500 ML IV ONE (04:00)
[2016-06-17] MEDS ORDERED: LIDOCAINE 2% 5 ML SDV ID ONE (04:00)
[2016-06-17] MEDS ORDERED: THEOPHYLLINE ORAL SOLUTION 80 MG/15 ML UDCUP PO ONE ×2 (04:00→11:30)
[2016-06-17] MEDS ORDERED: fentaNYL 100 MCG/2 ML INJ ONE (05:29)
[2016-06-17] MEDS ORDERED: ETOMIDATE 20 MG/10 ML VIAL ONE (05:30)
[2016-06-17] MEDS ORDERED: MIDAZOLAM 2 MG/2 ML VIAL ONE (05:30)
[2016-06-17] MEDS ORDERED: ROCURONIUM 50 MG/5 ML VIAL ONE (05:30)
[2016-06-17] MEDS ORDERED: ONDANSETRON 4 MG/2 ML VIAL ONE (05:30)
[2016-06-17] MEDS ORDERED: SUCCINYLCHOLINE CHLORIDE 200 MG/10 ML VIAL ONE (05:30)
[2016-06-17] MEDS ORDERED: KETOROLAC 30 MG/1 ML SDV ONE (05:30)
[2016-06-17] MEDS ORDERED: GLYCOPYRROLATE 0.2 MG/1 ML VIAL ONE (05:30)
[2016-06-17] MEDS ORDERED: ONDANSETRON DISINTEGRATING 4 MG TAB ONE (12:51)
[2016-06-17] MEDS ORDERED: CITRIC ACID/SODIUM CITRATE 30 ML UDCUP ONE (12:51)
[2016-06-17] MEDS ORDERED: ONDANSETRON DISINTEGRATING 4 MG TAB PO PRN (13:09)
[2016-06-17] MEDS ORDERED: HYDROCODONE/APAP 5/325 TAB PO PRN (13:09)
--- NOTE | 2016-06-17 13:21 | SOAPPROG ---
SOAP Progress Note Assessment/Plan: Assessment: Bipolar NOS v MDD, severe treatment resistant, OCD, Eating Disorder NOS Plan: Full ECT consultation completed today. Discussed case at length with Dr. Vazquez.He agreed that we are likely treating a bipolar spectrum illness.He agrees with restarting Lamictal, Titrating Seroquel, And discontinuing Cymbalta.I will use Prozac 40 mg a day for five days in order to circumvent Serotonin discontinuation syndrome.We will also use Seroquel in low doses as needed for anxiety in order to minimize use of benzodiazepine. She gives I/C for these changes understanding the metabolic risks and that of EPS/akithesia/ TD and rash/Odom Johnsons. Pt and I reviewed efficacy of ECT in TRD vs Med using Star D date to inform us. She understands The value of using maintenance ECT along with medication for up to a year after the acute course in order to minimize relapse risk to which one would be highly vulnerable in that first 6 to 12 months. In further discussing Her post discharge convalescent care, She felt that the use of an assisted living program would be bestIn order to minimize the burden on her family. Her brother is a assistant associate full professor and her sister in law works for the [employer] and I offered to use FMLA paperwork for either of them. Likewise, I encouraged the patient to receive FMLA paperwork from her own hospital so then I could fill it out for her Most time spent reviewing cognitive impact of ECT Including anterograde and retrograde amnesia, abulia, delirium, and we reviewed the notion of state dependent memory issues. We contrasted these mostly transitory problems with the much more globally impactful effects of her illness itself with its risk of self harm, nil quality of life, and cognitive impairment itself. I expressed hopefulness re her prognosis given severe vegetative symtoms, and relatively short duration (4-5 months) of this present episode. 05/31/16 15:12 Pt highly dyphoric and hopeless with SI. Has some capacity to feel hope around ECT, but worries that she will be in the perecent of patients that do not respond. Slept well with seroquel without akathisia. WIll increase to 150 mg. Underwent first ECT today at 50% (0.25 msec) and had short motor seizure. Will add theophylline 160 mg pre ECT. Affect constricted, PMR, poor eye contact, TP goal directed. TC pos SI/rumination/hopelessness. 06/01/16 12:04 06/02/16 17:17 Pt complained of bad, migrainous BUSBY post ECT, lasting until today, Rxed with her tryptan plus Ibuprofen. Will increase IV anti BUSBY meds tomorrow with ECT. She reports no clear changes in mood, but sql report writer shared with her that she looked a bit less tense and dysphoric and was making better eye contact. She minimized the significance of these observations and had a narrative for why she might look better but was really not. Stilll thus hopeless and feeling like this is her "last resort" with plan to suicide, she now states, if ECT does not work She met with brother and sister in law. Apparently they are quite happy to help her post discharge, despite her reluctance to let them do so. Assisted living for dispo remains a possibility. 06/02/16 17:19 06/03/16 13:48 Pt reports an abatement of seroquel related sedation after her second dose last night. Hence, will increase to 200 mg q hs. No rash with LMT. Affect still quite constricted, poor eye contact again today, +PMR, hopeless and with significant SI intent, with plan to if ECT "does not work." Rumination. self deprecation, guilt, sig cognitive deficits in exec functioning, attention and processing speed. Better motor seizure today with addition of theophylline. Anticipate no med changes over weekend. Coming off cymbalta, but using Prozac temporarily to prevent 5HT withdrawal symtoms. 06/06/16 13:52 Reviewed notes over weekend. Pt reports no clear benefit subjectively yet, but does appear to sql report writer to be less agitated, tense, dysphoric and constricted. Still quite impoverished in speech. Isolates. +PMR. Still hopeless and with SI but perhaps not quite as intensely. Still sedated with seroquel 200 mg but also sleeping soundly with it. Will further increase theophylline due to short motor seizure again today. Will increase LMT to 50 mg per titration schedule 06/08/16 10:06 Pt remains dysphroric, blunted, impov in speech and action, isolating, with poor eye contact. Does however appear less tense, tearful and agitated than upon admission. Still c/o of sedation with seroquel and hard sleep. Motor seizure 13 sec. Will increase theophylline to 360 AND hold hs LMT. No seratonin d/c symptoms reported. Cont acute ECT. COnt seroquel. May reduce dose IF sedation continues to persist. 06/14/16 16:22 Reviewed cx over last 6 days. Appears a bit brighter to MD upon walking into her room mid afternoon, as she smiled widely. However, quickly it became clear that subjectively she remains no better and even remains hopeless with SI. Eye contact intermittant. Impover. speech. Limited one or two word answers. Judgement/Insight/Exec funct. impaired. Still no real progress for instance, on post D/C planning. She was asked whether she would do Assist. Living or Care from Family, to which she said the latter, as Sister in law can "bring me one or two times a week." I indicated that that was inadequate and likened it to a patient declaring they would take 5 days of their 10 day course of antibx and take the remainder sporadically. She nodded, as if she understood analogy. This disengagement from her care speaks to level of depression being quite severe still. I shall call family tomorrow and finalize what they are willing/ able to do and if it less than 3x/week AND 24/7 supervision, she will need Assisted Living. For now, she is still too ill for either dispo, and represents an ongoing suicide risk. Will decrease Seroquel dose as she still c/ o daytime sedatiion. Will consider ketamine or Bilateral ECT 06/15/16 14:28 Clinically, unchanged from yestday. A bit less sedated, per pt, with reduction in seroquel. Still, with prominent dysphoria, impovershiment, blunting, impaired eye contact, etc. SOunds like brother and sister in law can aid pt over holiday with 24/7 supervision Still weighing ketamine and Bilateral; 06/16/16 14:39 Pt out in dayroom, in rocking chair, rocking back and forth. Odd smile, less impoverished but had halting speech and word finding difficulties as she attempted to explain the insurance SNAFU that will keep her from being able to see her old therapist. Discussed dispo plan with pt and CC present. Sleep ok. Less sedated on less seroquel. SUbjectively, still dysphoric and hopeless, c/w her lack of any subjective improvement in mood. Cont acute ECT. Consider ketamine v bilateral. 06/17/16 13:18 Pt in for ECT #8, [facility] 29/. Superficially, brighter and more quick to smile, but she remains quite impoverished in speech, with PMR, poor eye contact, and thought blocking. She was unsure how to manage the idea of providing work with [employer] paperwork and could not trouble shoot, for instance, her inability to recall when she last worked. She evinces a significant cognitive impairment that to this sql report writer is likely more to do with depression than ECT SE. Less sedation with seroquel 150. No rash with LMT. Cont acute ECT into next week 06/17/16 13:21 Objective: Vital Signs Temp Pulse Resp BP Pulse Ox 36.4 C 56 L 12 108/59 L 96 06/17/16 06:29 06/17/16 06:29 06/17/16 06:29 06/17/16 06:29 06/17/16 06:29 ICD10 Worksheet Patient Problems: Problems Problem Status Diagnosed Bipolar disorder Acute Eating disorder Acute Major depress dis, severe Acute OCD (obsessive compulsive disorder) Acute - ICD10 Problem Qualifiers (1) Bipolar disorder Qualifiers: Qualified Description: Bipolar disorder, current episode depressed, severe , without psychotic features Qualifier Code(s): (F31.4) Bipolar disorder, current episode depressed, severe, without psychotic features (2) Major depress dis, severe (3) OCD (obsessive compulsive disorder) (4) Eating disorder
[2016-06-17] MEDS: OMEGA-3 FATTY ACIDS 1,000 MG CAP PO SCH ×2 (15:50→21:47)
[2016-06-17] MEDS: ISOTRETINOIN 40 MG PO SCH (15:50)
[2016-06-17] MEDS: CHOLECALCIFEROL VIT D3 1,000 UNITS TAB PO SCH (15:51)
[2016-06-17] MEDS: NORGESTIMATE ETHINYL ESTRADIOL PO SCH ×2 (15:52→16:00)
[2016-06-17] MEDS: POLYETHYLENE GLYCOL 3350 17 GM PKT PO SCH (15:52)
[2016-06-17] MEDS: CYANO/VITAMIN B12 1000 MCG TAB PO SCH (15:53)
[2016-06-17] MEDS: valACYclovir 500 MG TAB PO SCH (15:53)
[2016-06-17] MEDS: SUMAtriptan 50 MG TAB PO PRN (18:24)
[2016-06-17] MEDS: QUEtiapine FUMARATE 100 MG TAB PO SCH (21:47)
[2016-06-17] MEDS: HYDROCORTISONE 1% CREAM TP PRN (21:59)
[2016-06-18] MEDS: ISOTRETINOIN 40 MG PO SCH (09:13)
[2016-06-18] MEDS: CHOLECALCIFEROL VIT D3 1,000 UNITS TAB PO SCH (09:14)
[2016-06-18] MEDS: CYANO/VITAMIN B12 1000 MCG TAB PO SCH (09:15)
[2016-06-18] MEDS: NORGESTIMATE ETHINYL ESTRADIOL PO SCH (09:16)
[2016-06-18] MEDS: POLYETHYLENE GLYCOL 3350 17 GM PKT PO SCH (09:17)
[2016-06-18] MEDS: valACYclovir 500 MG TAB PO SCH (09:19)
[2016-06-18] MEDS: OMEGA-3 FATTY ACIDS 1,000 MG CAP PO SCH ×2 (09:33→21:29)
--- NOTE | 2016-06-18 12:17 | SOAPPROG ---
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 Plan: ECT 06/20/16 con't current tx-pr slowly improving 06/18/16 12:14 Subjective: no c/o Objective: Vital Signs Temp Pulse Resp BP Pulse Ox 36.5 C 73 12 99/62 L 94 06/18/16 06:07 06/18/16 06:07 06/18/16 06:07 06/18/16 06:07 06/18/16 06:07 Pt is A+O x4 mood-depressed affect-blunted thoughts-poverty of thought content no active SI no HI no A/V H no sx psychosis/lakhwinder slept 7 hours memory-intact + hopelessness if ECT does not work speech-impoverished no NAHOMY I/J-good - Time Spent With Patient Time Spent With Patient: 15' - Pending Discharge Pending Discharge Within 24 Hours: No Pending Discharge Within 48 Hours: No ICD10 Worksheet Patient Problems: Problems Problem Status Diagnosed Bipolar disorder Acute Eating disorder Acute Major depress dis, severe Acute OCD (obsessive compulsive disorder) Acute
[2016-06-18] MEDS: QUEtiapine FUMARATE 100 MG TAB PO SCH (21:30)
[2016-06-19] MEDS: ISOTRETINOIN 40 MG PO SCH (10:34)
[2016-06-19] MEDS: CHOLECALCIFEROL VIT D3 1,000 UNITS TAB PO SCH (10:34)
[2016-06-19] MEDS: CYANO/VITAMIN B12 1000 MCG TAB PO SCH (10:35)
[2016-06-19] MEDS: NORGESTIMATE ETHINYL ESTRADIOL PO SCH (10:35)
[2016-06-19] MEDS: valACYclovir 500 MG TAB PO SCH (11:55)
[2016-06-19] MEDS: POLYETHYLENE GLYCOL 3350 17 GM PKT PO SCH (11:55)
[2016-06-19] MEDS: OMEGA-3 FATTY ACIDS 1,000 MG CAP PO SCH ×2 (11:55→21:14)
--- NOTE | 2016-06-19 12:14 | SOAPPROG ---
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 Plan: ECT 06/20/16 con't current tx-pr slowly improving her brother visited 06/18/16 06/19/16 12:12 Subjective: Pt seem slightly brighter today no c/o Objective: Vital Signs Temp Pulse Resp BP Pulse Ox 36.5 C 73 12 99/62 L 94 06/18/16 06:07 06/18/16 06:07 06/18/16 06:07 06/18/16 06:07 06/18/16 06:07 Pt is A+O x4 mood-depressed affect-appr thoughts-poverty of thought content denies A/V H no S/H I slept good last night speech-soft c/o of problems with memory and focus no sx psychosis/lakhwinder I/J-fair - Time Spent With Patient Time Spent With Patient: 10' - Pending Discharge Pending Discharge Within 24 Hours: No Pending Discharge Within 48 Hours: No ICD10 Worksheet Patient Problems: Problems Problem Status Diagnosed Bipolar disorder Acute Eating disorder Acute Major depress dis, severe Acute OCD (obsessive compulsive disorder) Acute
[2016-06-19] MEDS: QUEtiapine FUMARATE 100 MG TAB PO SCH (21:15)
[2016-06-20] MEDS ORDERED: NS 500 ML IV ONE (04:00)
[2016-06-20] MEDS ORDERED: CITRIC ACID/SODIUM CITRATE 30 ML UDCUP PO ONE (04:00)
[2016-06-20] MEDS ORDERED: ONDANSETRON DISINTEGRATING 4 MG TAB PO ONE (04:00)
[2016-06-20] MEDS ORDERED: LIDOCAINE 2% 5 ML SDV ID ONE (04:00)
[2016-06-20] MEDS: THEOPHYLLINE ORAL SOLUTION 80 MG/15 ML UDCUP PO ONE ×2 (04:07→07:54)
[2016-06-20] MEDS ORDERED: THEOPHYLLINE ORAL SOLUTION 80 MG/15 ML UDCUP ONE (07:47)
[2016-06-20] MEDS ORDERED: fentaNYL 100 MCG/2 ML INJ ONE (08:40)
[2016-06-20] MEDS ORDERED: MIDAZOLAM 2 MG/2 ML VIAL ONE (08:40)
[2016-06-20] MEDS ORDERED: KETOROLAC 30 MG/1 ML SDV ONE (08:41)
[2016-06-20] MEDS ORDERED: GLYCOPYRROLATE 0.2 MG/1 ML VIAL ONE (08:41)
[2016-06-20] MEDS ORDERED: ETOMIDATE 20 MG/10 ML VIAL ONE (08:41)
[2016-06-20] MEDS ORDERED: ROCURONIUM 50 MG/5 ML VIAL ONE (08:42)
[2016-06-20] MEDS ORDERED: SUCCINYLCHOLINE CHLORIDE 200 MG/10 ML VIAL ONE (08:42)
[2016-06-20] MEDS ORDERED: CITRIC ACID/SODIUM CITRATE 30 ML UDCUP ONE (08:54)
[2016-06-20] MEDS ORDERED: ONDANSETRON DISINTEGRATING 4 MG TAB ONE (08:54)
[2016-06-20] MEDS ORDERED: HYDROCODONE/APAP 5/325 TAB PO PRN (10:06)
[2016-06-20] MEDS ORDERED: ONDANSETRON DISINTEGRATING 4 MG TAB PO PRN (10:06)
--- NOTE | 2016-06-20 10:38 | SOAPPROG ---
SOAP Progress Note Assessment/Plan: Assessment: Bipolar NOS v MDD, severe treatment resistant, OCD, Eating Disorder NOS Plan: Full ECT consultation completed today. Discussed case at length with Dr. Vazquez.He agreed that we are likely treating a bipolar spectrum illness.He agrees with restarting Lamictal, Titrating Seroquel, And discontinuing Cymbalta.I will use Prozac 40 mg a day for five days in order to circumvent Serotonin discontinuation syndrome.We will also use Seroquel in low doses as needed for anxiety in order to minimize use of benzodiazepine. She gives I/C for these changes understanding the metabolic risks and that of EPS/akithesia/ TD and rash/Odom Johnsons. Pt and I reviewed efficacy of ECT in TRD vs Med using Star D date to inform us. She understands The value of using maintenance ECT along with medication for up to a year after the acute course in order to minimize relapse risk to which one would be highly vulnerable in that first 6 to 12 months. In further discussing Her post discharge convalescent care, She felt that the use of an assisted living program would be bestIn order to minimize the burden on her family. Her brother is a geophysics scientist and her sister in law works for the [employer] and I offered to use FMLA paperwork for either of them. Likewise, I encouraged the patient to receive FMLA paperwork from her own hospital so then I could fill it out for her Most time spent reviewing cognitive impact of ECT Including anterograde and retrograde amnesia, abulia, delirium, and we reviewed the notion of state dependent memory issues. We contrasted these mostly transitory problems with the much more globally impactful effects of her illness itself with its risk of self harm, nil quality of life, and cognitive impairment itself. I expressed hopefulness re her prognosis given severe vegetative symtoms, and relatively short duration (4-5 months) of this present episode. 05/31/16 15:12 Pt highly dyphoric and hopeless with SI. Has some capacity to feel hope around ECT, but worries that she will be in the perecent of patients that do not respond. Slept well with seroquel without akathisia. WIll increase to 150 mg. Underwent first ECT today at 50% (0.25 msec) and had short motor seizure. Will add theophylline 160 mg pre ECT. Affect constricted, PMR, poor eye contact, TP goal directed. TC pos SI/rumination/hopelessness. 06/01/16 12:04 06/02/16 17:17 Pt complained of bad, migrainous BUSBY post ECT, lasting until today, Rxed with her tryptan plus Ibuprofen. Will increase IV anti BUSBY meds tomorrow with ECT. She reports no clear changes in mood, but play writer shared with her that she looked a bit less tense and dysphoric and was making better eye contact. She minimized the significance of these observations and had a narrative for why she might look better but was really not. Stilll thus hopeless and feeling like this is her "last resort" with plan to suicide, she now states, if ECT does not work She met with brother and sister in law. Apparently they are quite happy to help her post discharge, despite her reluctance to let them do so. Assisted living for dispo remains a possibility. 06/02/16 17:19 06/03/16 13:48 Pt reports an abatement of seroquel related sedation after her second dose last night. Hence, will increase to 200 mg q hs. No rash with LMT. Affect still quite constricted, poor eye contact again today, +PMR, hopeless and with significant SI intent, with plan to if ECT "does not work." Rumination. self deprecation, guilt, sig cognitive deficits in exec functioning, attention and processing speed. Better motor seizure today with addition of theophylline. Anticipate no med changes over weekend. Coming off cymbalta, but using Prozac temporarily to prevent 5HT withdrawal symtoms. 06/06/16 13:52 Reviewed notes over weekend. Pt reports no clear benefit subjectively yet, but does appear to play writer to be less agitated, tense, dysphoric and constricted. Still quite impoverished in speech. Isolates. +PMR. Still hopeless and with SI but perhaps not quite as intensely. Still sedated with seroquel 200 mg but also sleeping soundly with it. Will further increase theophylline due to short motor seizure again today. Will increase LMT to 50 mg per titration schedule 06/08/16 10:06 Pt remains dysphroric, blunted, impov in speech and action, isolating, with poor eye contact. Does however appear less tense, tearful and agitated than upon admission. Still c/o of sedation with seroquel and hard sleep. Motor seizure 13 sec. Will increase theophylline to 360 AND hold hs LMT. No seratonin d/c symptoms reported. Cont acute ECT. COnt seroquel. May reduce dose IF sedation continues to persist. 06/14/16 16:22 Reviewed cx over last 6 days. Appears a bit brighter to MD upon walking into her room mid afternoon, as she smiled widely. However, quickly it became clear that subjectively she remains no better and even remains hopeless with SI. Eye contact intermittant. Impover. speech. Limited one or two word answers. Judgement/Insight/Exec funct. impaired. Still no real progress for instance, on post D/C planning. She was asked whether she would do Assist. Living or Care from Family, to which she said the latter, as Sister in law can "bring me one or two times a week." I indicated that that was inadequate and likened it to a patient declaring they would take 5 days of their 10 day course of antibx and take the remainder sporadically. She nodded, as if she understood analogy. This disengagement from her care speaks to level of depression being quite severe still. I shall call family tomorrow and finalize what they are willing/ able to do and if it less than 3x/week AND 24/7 supervision, she will need Assisted Living. For now, she is still too ill for either dispo, and represents an ongoing suicide risk. Will decrease Seroquel dose as she still c/ o daytime sedatiion. Will consider ketamine or Bilateral ECT 06/15/16 14:28 Clinically, unchanged from yestday. A bit less sedated, per pt, with reduction in seroquel. Still, with prominent dysphoria, impovershiment, blunting, impaired eye contact, etc. SOunds like brother and sister in law can aid pt over holiday with 24/7 supervision Still weighing ketamine and Bilateral; 06/16/16 14:39 Pt out in dayroom, in rocking chair, rocking back and forth. Odd smile, less impoverished but had halting speech and word finding difficulties as she attempted to explain the insurance SNAFU that will keep her from being able to see her old therapist. Discussed dispo plan with pt and CC present. Sleep ok. Less sedated on less seroquel. SUbjectively, still dysphoric and hopeless, c/w her lack of any subjective improvement in mood. Cont acute ECT. Consider ketamine v bilateral. 06/17/16 13:18 Pt in for ECT #8, Damico 29/1. Superficially, brighter and more quick to smile, but she remains quite impoverished in speech, with PMR, poor eye contact, and thought blocking. She was unsure how to manage the idea of providing work with FMLA paperwork and could not trouble shoot, for instance, her inability to recall when she last worked. She evinces a significant cognitive impairment that to this play writer is likely more to do with depression than ECT SE. Less sedation with seroquel 150. No rash with LMT. Cont acute ECT into next week 06/17/16 13:21 06/20/16 10:09 Pt in for ECT #9. Damico has jumped up to 55/1, but pt looks no worse. Subjectively, she continues to assert that she is unaware of feeling different/ better. Her affect and verbal output, however, are clearly improved--albeit not normal yet--when compared to admit baseline. Will decrease seroquel further to 100 mg. WIll cont acute ECT. Objective: Vital Signs Temp Pulse Resp BP Pulse Ox 36.3 C 66 12 120/68 100 06/20/16 06:00 06/20/16 06:00 06/20/16 06:00 06/20/16 06:00 06/20/16 06:00 ICD10 Worksheet Patient Problems: Problems Problem Status Diagnosed Bipolar disorder Acute Eating disorder Acute Major depress dis, severe Acute OCD (obsessive compulsive disorder) Acute - ICD10 Problem Qualifiers (1) Bipolar disorder Qualifiers: Qualified Description: Bipolar disorder, current episode depressed, severe , without psychotic features Qualifier Code(s): (F31.4) Bipolar disorder, current episode depressed, severe, without psychotic features (2) Major depress dis, severe (3) OCD (obsessive compulsive disorder) (4) Eating disorder
[2016-06-20] MEDS: SUMAtriptan 50 MG TAB PO PRN (11:55)
[2016-06-20] MEDS: POLYETHYLENE GLYCOL 3350 17 GM PKT PO SCH (12:10)
[2016-06-20] MEDS: valACYclovir 500 MG TAB PO SCH (12:11)
[2016-06-20] MEDS: OMEGA-3 FATTY ACIDS 1,000 MG CAP PO SCH ×2 (12:13→21:35)
[2016-06-20] MEDS: NORGESTIMATE ETHINYL ESTRADIOL PO SCH (12:14)
[2016-06-20] MEDS: CYANO/VITAMIN B12 1000 MCG TAB PO SCH (12:14)
[2016-06-20] MEDS: CHOLECALCIFEROL VIT D3 1,000 UNITS TAB PO SCH (12:15)
[2016-06-20] MEDS: ISOTRETINOIN 40 MG PO SCH (12:15)
[2016-06-20] MEDS: QUEtiapine FUMARATE 100 MG TAB PO SCH (21:35)
[2016-06-20] MEDS: HYDROCORTISONE 1% CREAM TP PRN (21:35)
[2016-06-21] MEDS: CHOLECALCIFEROL VIT D3 1,000 UNITS TAB PO SCH (08:39)
[2016-06-21] MEDS: OMEGA-3 FATTY ACIDS 1,000 MG CAP PO SCH ×2 (08:39→20:11)
[2016-06-21] MEDS: valACYclovir 500 MG TAB PO SCH (08:39)
[2016-06-21] MEDS: POLYETHYLENE GLYCOL 3350 17 GM PKT PO SCH (08:40)
[2016-06-21] MEDS: ISOTRETINOIN 40 MG PO SCH (08:42)
[2016-06-21] MEDS: NORGESTIMATE ETHINYL ESTRADIOL PO SCH (08:43)
[2016-06-21] MEDS: CYANO/VITAMIN B12 1000 MCG TAB PO SCH (09:07)
--- NOTE | 2016-06-21 12:18 | SOAPPROG ---
SOAP Progress Note Assessment/Plan: Assessment: Bipolar NOS v MDD, severe treatment resistant, OCD, Eating Disorder NOS Plan: Full ECT consultation completed today. Discussed case at length with Dr. Vazquez.He agreed that we are likely treating a bipolar spectrum illness.He agrees with restarting Lamictal, Titrating Seroquel, And discontinuing Cymbalta.I will use Prozac 40 mg a day for five days in order to circumvent Serotonin discontinuation syndrome.We will also use Seroquel in low doses as needed for anxiety in order to minimize use of benzodiazepine. She gives I/C for these changes understanding the metabolic risks and that of EPS/akithesia/ TD and rash/Odom Johnsons. Pt and I reviewed efficacy of ECT in TRD vs Med using Star D date to inform us. She understands The value of using maintenance ECT along with medication for up to a year after the acute course in order to minimize relapse risk to which one would be highly vulnerable in that first 6 to 12 months. In further discussing Her post discharge convalescent care, She felt that the use of an assisted living program would be bestIn order to minimize the burden on her family. Her brother is a nuclear physics professor and her sister in law works for the [employer] and I offered to use FMLA paperwork for either of them. Likewise, I encouraged the patient to receive FMLA paperwork from her own hospital so then I could fill it out for her Most time spent reviewing cognitive impact of ECT Including anterograde and retrograde amnesia, abulia, delirium, and we reviewed the notion of state dependent memory issues. We contrasted these mostly transitory problems with the much more globally impactful effects of her illness itself with its risk of self harm, nil quality of life, and cognitive impairment itself. I expressed hopefulness re her prognosis given severe vegetative symtoms, and relatively short duration (4-5 months) of this present episode. 05/31/16 15:12 Pt highly dyphoric and hopeless with SI. Has some capacity to feel hope around ECT, but worries that she will be in the perecent of patients that do not respond. Slept well with seroquel without akathisia. WIll increase to 150 mg. Underwent first ECT today at 50% (0.25 msec) and had short motor seizure. Will add theophylline 160 mg pre ECT. Affect constricted, PMR, poor eye contact, TP goal directed. TC pos SI/rumination/hopelessness. 06/01/16 12:04 06/02/16 17:17 Pt complained of bad, migrainous BUSBY post ECT, lasting until today, Rxed with her tryptan plus Ibuprofen. Will increase IV anti BUSBY meds tomorrow with ECT. She reports no clear changes in mood, but keno writer / runner shared with her that she looked a bit less tense and dysphoric and was making better eye contact. She minimized the significance of these observations and had a narrative for why she might look better but was really not. Stilll thus hopeless and feeling like this is her "last resort" with plan to suicide, she now states, if ECT does not work She met with brother and sister in law. Apparently they are quite happy to help her post discharge, despite her reluctance to let them do so. Assisted living for dispo remains a possibility. 06/02/16 17:19 06/03/16 13:48 Pt reports an abatement of seroquel related sedation after her second dose last night. Hence, will increase to 200 mg q hs. No rash with LMT. Affect still quite constricted, poor eye contact again today, +PMR, hopeless and with significant SI intent, with plan to if ECT "does not work." Rumination. self deprecation, guilt, sig cognitive deficits in exec functioning, attention and processing speed. Better motor seizure today with addition of theophylline. Anticipate no med changes over weekend. Coming off cymbalta, but using Prozac temporarily to prevent 5HT withdrawal symtoms. 06/06/16 13:52 Reviewed notes over weekend. Pt reports no clear benefit subjectively yet, but does appear to keno writer / runner to be less agitated, tense, dysphoric and constricted. Still quite impoverished in speech. Isolates. +PMR. Still hopeless and with SI but perhaps not quite as intensely. Still sedated with seroquel 200 mg but also sleeping soundly with it. Will further increase theophylline due to short motor seizure again today. Will increase LMT to 50 mg per titration schedule 06/08/16 10:06 Pt remains dysphroric, blunted, impov in speech and action, isolating, with poor eye contact. Does however appear less tense, tearful and agitated than upon admission. Still c/o of sedation with seroquel and hard sleep. Motor seizure 13 sec. Will increase theophylline to 360 AND hold hs LMT. No seratonin d/c symptoms reported. Cont acute ECT. COnt seroquel. May reduce dose IF sedation continues to persist. 06/14/16 16:22 Reviewed cx over last 6 days. Appears a bit brighter to MD upon walking into her room mid afternoon, as she smiled widely. However, quickly it became clear that subjectively she remains no better and even remains hopeless with SI. Eye contact intermittant. Impover. speech. Limited one or two word answers. Judgement/Insight/Exec funct. impaired. Still no real progress for instance, on post D/C planning. She was asked whether she would do Assist. Living or Care from Family, to which she said the latter, as Sister in law can "bring me one or two times a week." I indicated that that was inadequate and likened it to a patient declaring they would take 5 days of their 10 day course of antibx and take the remainder sporadically. She nodded, as if she understood analogy. This disengagement from her care speaks to level of depression being quite severe still. I shall call family tomorrow and finalize what they are willing/ able to do and if it less than 3x/week AND 24/7 supervision, she will need Assisted Living. For now, she is still too ill for either dispo, and represents an ongoing suicide risk. Will decrease Seroquel dose as she still c/ o daytime sedatiion. Will consider ketamine or Bilateral ECT 06/15/16 14:28 Clinically, unchanged from yestday. A bit less sedated, per pt, with reduction in seroquel. Still, with prominent dysphoria, impovershiment, blunting, impaired eye contact, etc. SOunds like brother and sister in law can aid pt over holiday with 24/7 supervision Still weighing ketamine and Bilateral; 06/16/16 14:39 Pt out in dayroom, in rocking chair, rocking back and forth. Odd smile, less impoverished but had halting speech and word finding difficulties as she attempted to explain the insurance SNAFU that will keep her from being able to see her old therapist. Discussed dispo plan with pt and CC present. Sleep ok. Less sedated on less seroquel. SUbjectively, still dysphoric and hopeless, c/w her lack of any subjective improvement in mood. Cont acute ECT. Consider ketamine v bilateral. 06/17/16 13:18 Pt in for ECT #8, Damico 29/1. Superficially, brighter and more quick to smile, but she remains quite impoverished in speech, with PMR, poor eye contact, and thought blocking. She was unsure how to manage the idea of providing work with FMLA paperwork and could not trouble shoot, for instance, her inability to recall when she last worked. She evinces a significant cognitive impairment that to this keno writer / runner is likely more to do with depression than ECT SE. Less sedation with seroquel 150. No rash with LMT. Cont acute ECT into next week 06/17/16 13:21 06/20/16 10:09 Pt in for ECT #9. Damico has jumped up to 55/1, but pt looks no worse. Subjectively, she continues to assert that she is unaware of feeling different/ better. Her affect and verbal output, however, are clearly improved--albeit not normal yet--when compared to admit baseline. Will decrease seroquel further to 100 mg. WIll cont acute ECT. 06/21/16 12:15 Pt in cafeteria, eating lunch at noon. Appears superficially brighter but remains with poor eye contact, markedly impoverished speech, and arguably odd affect (smiling inappropriately). Does contribute that she "cannot read" and answered with a head nod that she felt it was due to poor stm and concentration. Nonfarm Animal Caretaker reassured her re ECT SEs temporary nature. Sleep good with less daytime sedation. Will complete FMLA paperwork today. Acute ECT mon and monday. Objective: Vital Signs Temp Pulse Resp BP Pulse Ox 36.3 C 61 12 82/51 L 99 06/21/16 06:00 06/21/16 06:00 06/21/16 06:00 06/21/16 06:00 06/21/16 06:00 ICD10 Worksheet Patient Problems: Problems Problem Status Diagnosed Bipolar disorder Acute Eating disorder Acute Major depress dis, severe Acute OCD (obsessive compulsive disorder) Acute - ICD10 Problem Qualifiers (1) Bipolar disorder Qualifiers: Qualified Description: Bipolar disorder, current episode depressed, severe , without psychotic features Qualifier Code(s): (F31.4) Bipolar disorder, current episode depressed, severe, without psychotic features (2) Major depress dis, severe (3) OCD (obsessive compulsive disorder) (4) Eating disorder
[2016-06-21] MEDS: QUEtiapine FUMARATE 100 MG TAB PO SCH (20:11)
[2016-06-22] MEDS ORDERED: CITRIC ACID/SODIUM CITRATE 30 ML UDCUP PO ONE (04:00)
[2016-06-22] MEDS ORDERED: THEOPHYLLINE ORAL SOLUTION 80 MG/15 ML UDCUP PO ONE (04:00)
[2016-06-22] MEDS ORDERED: ONDANSETRON DISINTEGRATING 4 MG TAB PO ONE (04:00)
[2016-06-22] MEDS ORDERED: LIDOCAINE 2% 5 ML SDV ID ONE (04:00)
[2016-06-22] MEDS ORDERED: NS 500 ML IV ONE (04:00)
[2016-06-22] MEDS ORDERED: KETOROLAC 30 MG/1 ML SDV ONE (05:36)
[2016-06-22] MEDS ORDERED: MIDAZOLAM 2 MG/2 ML VIAL ONE (05:36)
[2016-06-22] MEDS ORDERED: ONDANSETRON 4 MG/2 ML VIAL ONE (05:36)
[2016-06-22] MEDS ORDERED: fentaNYL 100 MCG/2 ML INJ ONE (05:36)
[2016-06-22] MEDS ORDERED: GLYCOPYRROLATE 0.2 MG/1 ML VIAL ONE (05:36)
[2016-06-22] MEDS ORDERED: ETOMIDATE 20 MG/10 ML VIAL ONE (05:36)
[2016-06-22] MEDS ORDERED: SUCCINYLCHOLINE CHLORIDE 200 MG/10 ML VIAL ONE (05:38)
[2016-06-22] MEDS ORDERED: ROCURONIUM 50 MG/5 ML VIAL ONE (05:38)
[2016-06-22] MEDS ORDERED: THEOPHYLLINE ORAL SOLUTION 80 MG/15 ML UDCUP ONE (08:20)
[2016-06-22] MEDS ORDERED: ONDANSETRON DISINTEGRATING 4 MG TAB ONE (10:20)
[2016-06-22] MEDS ORDERED: CITRIC ACID/SODIUM CITRATE 30 ML UDCUP ONE (10:21)
[2016-06-22] MEDS ORDERED: ONDANSETRON DISINTEGRATING 4 MG TAB PO PRN (10:57)
[2016-06-22] MEDS ORDERED: HYDROCODONE/APAP 5/325 TAB PO PRN (10:57)
--- NOTE | 2016-06-22 11:10 | SOAPPROG ---
SOAP Progress Note Assessment/Plan: Assessment: Bipolar NOS v MDD, severe treatment resistant, OCD, Eating Disorder NOS Plan: Full ECT consultation completed today. Discussed case at length with Dr. Vazquez.He agreed that we are likely treating a bipolar spectrum illness.He agrees with restarting Lamictal, Titrating Seroquel, And discontinuing Cymbalta.I will use Prozac 40 mg a day for five days in order to circumvent Serotonin discontinuation syndrome.We will also use Seroquel in low doses as needed for anxiety in order to minimize use of benzodiazepine. She gives I/C for these changes understanding the metabolic risks and that of EPS/akithesia/ TD and rash/Odom Johnsons. Pt and I reviewed efficacy of ECT in TRD vs Med using Star D date to inform us. She understands The value of using maintenance ECT along with medication for up to a year after the acute course in order to minimize relapse risk to which one would be highly vulnerable in that first 6 to 12 months. In further discussing Her post discharge convalescent care, She felt that the use of an assisted living program would be bestIn order to minimize the burden on her family. Her brother is a archeology professor and her sister in law works for the [employer] and I offered to use FMLA paperwork for either of them. Likewise, I encouraged the patient to receive FMLA paperwork from her own hospital so then I could fill it out for her Most time spent reviewing cognitive impact of ECT Including anterograde and retrograde amnesia, abulia, delirium, and we reviewed the notion of state dependent memory issues. We contrasted these mostly transitory problems with the much more globally impactful effects of her illness itself with its risk of self harm, nil quality of life, and cognitive impairment itself. I expressed hopefulness re her prognosis given severe vegetative symtoms, and relatively short duration (4-5 months) of this present episode. 05/31/16 15:12 Pt highly dyphoric and hopeless with SI. Has some capacity to feel hope around ECT, but worries that she will be in the perecent of patients that do not respond. Slept well with seroquel without akathisia. WIll increase to 150 mg. Underwent first ECT today at 50% (0.25 msec) and had short motor seizure. Will add theophylline 160 mg pre ECT. Affect constricted, PMR, poor eye contact, TP goal directed. TC pos SI/rumination/hopelessness. 06/01/16 12:04 06/02/16 17:17 Pt complained of bad, migrainous BUSBY post ECT, lasting until today, Rxed with her tryptan plus Ibuprofen. Will increase IV anti BUSBY meds tomorrow with ECT. She reports no clear changes in mood, but scientific technical writer shared with her that she looked a bit less tense and dysphoric and was making better eye contact. She minimized the significance of these observations and had a narrative for why she might look better but was really not. Stilll thus hopeless and feeling like this is her "last resort" with plan to suicide, she now states, if ECT does not work She met with brother and sister in law. Apparently they are quite happy to help her post discharge, despite her reluctance to let them do so. Assisted living for dispo remains a possibility. 06/02/16 17:19 06/03/16 13:48 Pt reports an abatement of seroquel related sedation after her second dose last night. Hence, will increase to 200 mg q hs. No rash with LMT. Affect still quite constricted, poor eye contact again today, +PMR, hopeless and with significant SI intent, with plan to if ECT "does not work." Rumination. self deprecation, guilt, sig cognitive deficits in exec functioning, attention and processing speed. Better motor seizure today with addition of theophylline. Anticipate no med changes over weekend. Coming off cymbalta, but using Prozac temporarily to prevent 5HT withdrawal symtoms. 06/06/16 13:52 Reviewed notes over weekend. Pt reports no clear benefit subjectively yet, but does appear to scientific technical writer to be less agitated, tense, dysphoric and constricted. Still quite impoverished in speech. Isolates. +PMR. Still hopeless and with SI but perhaps not quite as intensely. Still sedated with seroquel 200 mg but also sleeping soundly with it. Will further increase theophylline due to short motor seizure again today. Will increase LMT to 50 mg per titration schedule 06/08/16 10:06 Pt remains dysphroric, blunted, impov in speech and action, isolating, with poor eye contact. Does however appear less tense, tearful and agitated than upon admission. Still c/o of sedation with seroquel and hard sleep. Motor seizure 13 sec. Will increase theophylline to 360 AND hold hs LMT. No seratonin d/c symptoms reported. Cont acute ECT. COnt seroquel. May reduce dose IF sedation continues to persist. 06/14/16 16:22 Reviewed cx over last 6 days. Appears a bit brighter to MD upon walking into her room mid afternoon, as she smiled widely. However, quickly it became clear that subjectively she remains no better and even remains hopeless with SI. Eye contact intermittant. Impover. speech. Limited one or two word answers. Judgement/Insight/Exec funct. impaired. Still no real progress for instance, on post D/C planning. She was asked whether she would do Assist. Living or Care from Family, to which she said the latter, as Sister in law can "bring me one or two times a week." I indicated that that was inadequate and likened it to a patient declaring they would take 5 days of their 10 day course of antibx and take the remainder sporadically. She nodded, as if she understood analogy. This disengagement from her care speaks to level of depression being quite severe still. I shall call family tomorrow and finalize what they are willing/ able to do and if it less than 3x/week AND 24/7 supervision, she will need Assisted Living. For now, she is still too ill for either dispo, and represents an ongoing suicide risk. Will decrease Seroquel dose as she still c/ o daytime sedatiion. Will consider ketamine or Bilateral ECT 06/15/16 14:28 Clinically, unchanged from yestday. A bit less sedated, per pt, with reduction in seroquel. Still, with prominent dysphoria, impovershiment, blunting, impaired eye contact, etc. SOunds like brother and sister in law can aid pt over holiday with 24/7 supervision Still weighing ketamine and Bilateral; 06/16/16 14:39 Pt out in dayroom, in rocking chair, rocking back and forth. Odd smile, less impoverished but had halting speech and word finding difficulties as she attempted to explain the insurance SNAFU that will keep her from being able to see her old therapist. Discussed dispo plan with pt and CC present. Sleep ok. Less sedated on less seroquel. SUbjectively, still dysphoric and hopeless, c/w her lack of any subjective improvement in mood. Cont acute ECT. Consider ketamine v bilateral. 06/17/16 13:18 Pt in for ECT #8, Segal 29/1. Superficially, brighter and more quick to smile, but she remains quite impoverished in speech, with PMR, poor eye contact, and thought blocking. She was unsure how to manage the idea of providing work with [employer] paperwork and could not trouble shoot, for instance, her inability to recall when she last worked. She evinces a significant cognitive impairment that to this scientific technical writer is likely more to do with depression than ECT SE. Less sedation with seroquel 150. No rash with LMT. Cont acute ECT into next week 06/17/16 13:21 06/20/16 10:09 Pt in for ECT #9. Segal has jumped up to 55/1, but pt looks no worse. Subjectively, she continues to assert that she is unaware of feeling different/ better. Her affect and verbal output, however, are clearly improved--albeit not normal yet--when compared to admit baseline. Will decrease seroquel further to 100 mg. WIll cont acute ECT. 06/21/16 12:15 Pt in cafeteria, eating lunch at noon. Appears superficially brighter but remains with poor eye contact, markedly impoverished speech, and arguably odd affect (smiling inappropriately). Does contribute that she "cannot read" and answered with a head nod that she felt it was due to poor stm and concentration. Airport Traffic Controller reassured her re ECT SEs temporary nature. Sleep good with less daytime sedation. Will complete FMLA paperwork today. Acute ECT mon and monday. 06/22/16 11:07 Pt a bit less impoverished this am, able to answer why she cannot read (" because I cant remember the last page!!", said with a smile). Also, she clarified that at her non-depressed baseline, she is certainly an introvert. She is odd and has an impairment in relatedness that makes this scientific technical writer question a psychotic process. Score on segal back to 35/1 after last treatments bump upward. Will try ketamine as anesthetic next ECT. Tolerating meds without sedation, EPS, akithisia or rash. Cont acute ECT through at least monday. Objective: Vital Signs Temp Pulse Resp BP Pulse Ox 36.3 C 56 L 12 105/55 L 97 06/22/16 06:00 06/22/16 06:00 06/22/16 06:00 06/22/16 06:00 06/22/16 06:00 ICD10 Worksheet Patient Problems: Problems Problem Status Diagnosed Bipolar disorder Acute Eating disorder Acute Major depress dis, severe Acute OCD (obsessive compulsive disorder) Acute - ICD10 Problem Qualifiers (1) Bipolar disorder Qualifiers: Qualified Description: Bipolar disorder, current episode depressed, severe , without psychotic features Qualifier Code(s): (F31.4) Bipolar disorder, current episode depressed, severe, without psychotic features (2) Major depress dis, severe (3) OCD (obsessive compulsive disorder) (4) Eating disorder
[2016-06-22] MEDS: OMEGA-3 FATTY ACIDS 1,000 MG CAP PO SCH ×2 (12:05→21:39)
[2016-06-22] MEDS: CHOLECALCIFEROL VIT D3 1,000 UNITS TAB PO SCH (12:05)
[2016-06-22] MEDS: POLYETHYLENE GLYCOL 3350 17 GM PKT PO SCH (12:05)
[2016-06-22] MEDS: valACYclovir 500 MG TAB PO SCH (12:06)
[2016-06-22] MEDS: CYANO/VITAMIN B12 1000 MCG TAB PO SCH (12:06)
[2016-06-22] MEDS: NORGESTIMATE ETHINYL ESTRADIOL PO SCH (12:07)
[2016-06-22] MEDS: ISOTRETINOIN 40 MG PO SCH (12:07)
[2016-06-22] MEDS: lamoTRIgine 25 MG TAB PO SCH (21:39)
[2016-06-22] MEDS: QUEtiapine FUMARATE 100 MG TAB PO SCH (21:39)
[2016-06-23] MEDS: OMEGA-3 FATTY ACIDS 1,000 MG CAP PO SCH ×2 (08:31→20:51)
[2016-06-23] MEDS: valACYclovir 500 MG TAB PO SCH (08:32)
[2016-06-23] MEDS: CHOLECALCIFEROL VIT D3 1,000 UNITS TAB PO SCH (08:33)
[2016-06-23] MEDS: CYANO/VITAMIN B12 1000 MCG TAB PO SCH (08:33)
[2016-06-23] MEDS: NORGESTIMATE ETHINYL ESTRADIOL PO SCH (08:34)
[2016-06-23] MEDS: POLYETHYLENE GLYCOL 3350 17 GM PKT PO SCH (08:34)
[2016-06-23] MEDS: ISOTRETINOIN 40 MG PO SCH (10:43)
--- NOTE | 2016-06-23 16:35 | SOAPPROG ---
SOAP Progress Note Assessment/Plan: Assessment: Plan: 06/07/16 16:13 Remains quite depressed. CCM per Dr. Zuniga inc: continued acute course ECT. 06/09/16 16:13 Remains very depressed. CCM. 06/10/16 09:48 No change in clinical status thus far. CCM. 06/13/16 11:18 Remains depressed though objectively improving. Will CCM, consider change to bilateral treatment. 06/23/16 16:34 Much improved over my last encounter with her. CCM. Subjective: Pt seen, discussed with staff, chart reviewed. Reports feeling "a little better " today. Smiling and interactive with me. Much more conversant, fluent. Request AG. Reports no current SI. Objective: Vital Signs Temp Pulse Resp BP Pulse Ox 36.9 C 75 14 119/66 97 06/23/16 06:17 06/23/16 06:17 06/23/16 06:17 06/23/16 06:17 06/23/16 06:17 MSE: Calm, coop. Affect is much brighter, stable. Mood is "better." TP linear. TC reveals no psychosis. Less delay in responses. A&Ox4. Denies active SI, more hopeful. - Time Spent With Patient Time Spent With Patient: 25" - Pending Discharge Pending Discharge Within 24 Hours: No Pending Discharge Within 48 Hours: No ICD10 Worksheet Patient Problems: Problems Problem Status Diagnosed Bipolar disorder Acute Eating disorder Acute Major depress dis, severe Acute OCD (obsessive compulsive disorder) Acute
[2016-06-23] MEDS: QUEtiapine FUMARATE 100 MG TAB PO SCH (20:50)
[2016-06-24] MEDS ORDERED: ONDANSETRON DISINTEGRATING 4 MG TAB PO ONE ×2 (04:00→21:00)
[2016-06-24] MEDS ORDERED: CITRIC ACID/SODIUM CITRATE 30 ML UDCUP PO ONE (04:00)
[2016-06-24] MEDS ORDERED: LIDOCAINE 2% 5 ML SDV ID ONE (04:00)
[2016-06-24] MEDS ORDERED: THEOPHYLLINE ORAL SOLUTION 80 MG/15 ML UDCUP PO ONE ×2 (04:00→08:30)
[2016-06-24] MEDS ORDERED: NS 500 ML IV ONE (04:00)
[2016-06-24] MEDS ORDERED: MIDAZOLAM 2 MG/2 ML VIAL ONE (05:54)
[2016-06-24] MEDS ORDERED: fentaNYL 100 MCG/2 ML INJ ONE (05:54)
[2016-06-24] MEDS ORDERED: SUCCINYLCHOLINE CHLORIDE 200 MG/10 ML VIAL ONE (05:55)
[2016-06-24] MEDS ORDERED: ONDANSETRON 4 MG/2 ML VIAL ONE (05:55)
[2016-06-24] MEDS ORDERED: KETOROLAC 30 MG/1 ML SDV ONE (05:55)
[2016-06-24] MEDS ORDERED: GLYCOPYRROLATE 0.2 MG/1 ML VIAL ONE (05:55)
[2016-06-24] MEDS ORDERED: ROCURONIUM 50 MG/5 ML VIAL ONE (05:55)
[2016-06-24] MEDS ORDERED: KETAMINE 100 MG/10 ML SYR IVP ONE (05:55)
[2016-06-24] MEDS ORDERED: CITRIC ACID/SODIUM CITRATE 30 ML UDCUP ONE (12:36)
[2016-06-24] MEDS ORDERED: ONDANSETRON DISINTEGRATING 4 MG TAB ONE (12:36)
[2016-06-24] MEDS ORDERED: ONDANSETRON DISINTEGRATING 4 MG TAB PO PRN (13:39)
[2016-06-24] MEDS ORDERED: HYDROCODONE/APAP 5/325 TAB PO PRN (13:39)
--- NOTE | 2016-06-24 14:06 | SOAPPROG ---
SOAP Progress Note Assessment/Plan: Assessment: Bipolar NOS v MDD, severe treatment resistant, OCD, Eating Disorder NOS Plan: Full ECT consultation completed today. Discussed case at length with Dr. Vazquez.He agreed that we are likely treating a bipolar spectrum illness.He agrees with restarting Lamictal, Titrating Seroquel, And discontinuing Cymbalta.I will use Prozac 40 mg a day for five days in order to circumvent Serotonin discontinuation syndrome.We will also use Seroquel in low doses as needed for anxiety in order to minimize use of benzodiazepine. She gives I/C for these changes understanding the metabolic risks and that of EPS/akithesia/ TD and rash/Odom Johnsons. Pt and I reviewed efficacy of ECT in TRD vs Med using Star D date to inform us. She understands The value of using maintenance ECT along with medication for up to a year after the acute course in order to minimize relapse risk to which one would be highly vulnerable in that first 6 to 12 months. In further discussing Her post discharge convalescent care, She felt that the use of an assisted living program would be bestIn order to minimize the burden on her family. Her brother is a biophysics teacher and her sister in law works for the [employer] and I offered to use FMLA paperwork for either of them. Likewise, I encouraged the patient to receive FMLA paperwork from her own hospital so then I could fill it out for her Most time spent reviewing cognitive impact of ECT Including anterograde and retrograde amnesia, abulia, delirium, and we reviewed the notion of state dependent memory issues. We contrasted these mostly transitory problems with the much more globally impactful effects of her illness itself with its risk of self harm, nil quality of life, and cognitive impairment itself. I expressed hopefulness re her prognosis given severe vegetative symtoms, and relatively short duration (4-5 months) of this present episode. 05/31/16 15:12 Pt highly dyphoric and hopeless with SI. Has some capacity to feel hope around ECT, but worries that she will be in the perecent of patients that do not respond. Slept well with seroquel without akathisia. WIll increase to 150 mg. Underwent first ECT today at 50% (0.25 msec) and had short motor seizure. Will add theophylline 160 mg pre ECT. Affect constricted, PMR, poor eye contact, TP goal directed. TC pos SI/rumination/hopelessness. 06/01/16 12:04 06/02/16 17:17 Pt complained of bad, migrainous BUSBY post ECT, lasting until today, Rxed with her tryptan plus Ibuprofen. Will increase IV anti BUSBY meds tomorrow with ECT. She reports no clear changes in mood, but typewriter tester shared with her that she looked a bit less tense and dysphoric and was making better eye contact. She minimized the significance of these observations and had a narrative for why she might look better but was really not. Stilll thus hopeless and feeling like this is her "last resort" with plan to suicide, she now states, if ECT does not work She met with brother and sister in law. Apparently they are quite happy to help her post discharge, despite her reluctance to let them do so. Assisted living for dispo remains a possibility. 06/02/16 17:19 06/03/16 13:48 Pt reports an abatement of seroquel related sedation after her second dose last night. Hence, will increase to 200 mg q hs. No rash with LMT. Affect still quite constricted, poor eye contact again today, +PMR, hopeless and with significant SI intent, with plan to if ECT "does not work." Rumination. self deprecation, guilt, sig cognitive deficits in exec functioning, attention and processing speed. Better motor seizure today with addition of theophylline. Anticipate no med changes over weekend. Coming off cymbalta, but using Prozac temporarily to prevent 5HT withdrawal symtoms. 06/06/16 13:52 Reviewed notes over weekend. Pt reports no clear benefit subjectively yet, but does appear to typewriter tester to be less agitated, tense, dysphoric and constricted. Still quite impoverished in speech. Isolates. +PMR. Still hopeless and with SI but perhaps not quite as intensely. Still sedated with seroquel 200 mg but also sleeping soundly with it. Will further increase theophylline due to short motor seizure again today. Will increase LMT to 50 mg per titration schedule 06/08/16 10:06 Pt remains dysphroric, blunted, impov in speech and action, isolating, with poor eye contact. Does however appear less tense, tearful and agitated than upon admission. Still c/o of sedation with seroquel and hard sleep. Motor seizure 13 sec. Will increase theophylline to 360 AND hold hs LMT. No seratonin d/c symptoms reported. Cont acute ECT. COnt seroquel. May reduce dose IF sedation continues to persist. 06/14/16 16:22 Reviewed cx over last 6 days. Appears a bit brighter to MD upon walking into her room mid afternoon, as she smiled widely. However, quickly it became clear that subjectively she remains no better and even remains hopeless with SI. Eye contact intermittant. Impover. speech. Limited one or two word answers. Judgement/Insight/Exec funct. impaired. Still no real progress for instance, on post D/C planning. She was asked whether she would do Assist. Living or Care from Family, to which she said the latter, as Sister in law can "bring me one or two times a week." I indicated that that was inadequate and likened it to a patient declaring they would take 5 days of their 10 day course of antibx and take the remainder sporadically. She nodded, as if she understood analogy. This disengagement from her care speaks to level of depression being quite severe still. I shall call family tomorrow and finalize what they are willing/ able to do and if it less than 3x/week AND 24/7 supervision, she will need Assisted Living. For now, she is still too ill for either dispo, and represents an ongoing suicide risk. Will decrease Seroquel dose as she still c/ o daytime sedatiion. Will consider ketamine or Bilateral ECT 06/15/16 14:28 Clinically, unchanged from yestday. A bit less sedated, per pt, with reduction in seroquel. Still, with prominent dysphoria, impovershiment, blunting, impaired eye contact, etc. SOunds like brother and sister in law can aid pt over holiday with 24/7 supervision Still weighing ketamine and Bilateral; 06/16/16 14:39 Pt out in dayroom, in rocking chair, rocking back and forth. Odd smile, less impoverished but had halting speech and word finding difficulties as she attempted to explain the insurance SNAFU that will keep her from being able to see her old therapist. Discussed dispo plan with pt and CC present. Sleep ok. Less sedated on less seroquel. SUbjectively, still dysphoric and hopeless, c/w her lack of any subjective improvement in mood. Cont acute ECT. Consider ketamine v bilateral. 06/17/16 13:18 Pt in for ECT #8, Segal 29/1. Superficially, brighter and more quick to smile, but she remains quite impoverished in speech, with PMR, poor eye contact, and thought blocking. She was unsure how to manage the idea of providing work with [employer] paperwork and could not trouble shoot, for instance, her inability to recall when she last worked. She evinces a significant cognitive impairment that to this typewriter tester is likely more to do with depression than ECT SE. Less sedation with seroquel 150. No rash with LMT. Cont acute ECT into next week 06/17/16 13:21 06/20/16 10:09 Pt in for ECT #9. Segal has jumped up to 55/1, but pt looks no worse. Subjectively, she continues to assert that she is unaware of feeling different/ better. Her affect and verbal output, however, are clearly improved--albeit not normal yet--when compared to admit baseline. Will decrease seroquel further to 100 mg. WIll cont acute ECT. 06/21/16 12:15 Pt in cafeteria, eating lunch at noon. Appears superficially brighter but remains with poor eye contact, markedly impoverished speech, and arguably odd affect (smiling inappropriately). Does contribute that she "cannot read" and answered with a head nod that she felt it was due to poor stm and concentration. Furnace Mechanic reassured her re ECT SEs temporary nature. Sleep good with less daytime sedation. Will complete FMLA paperwork today. Acute ECT mon and monday. 06/22/16 11:07 Pt a bit less impoverished this am, able to answer why she cannot read (" because I cant remember the last page!!", said with a smile). Also, she clarified that at her non-depressed baseline, she is certainly an introvert. She is odd and has an impairment in relatedness that makes this typewriter tester question a psychotic process. Score on segal back to 35/1 after last treatments bump upward. Will try ketamine as anesthetic next ECT. Tolerating meds without sedation, EPS, akithisia or rash. Cont acute ECT through at least monday. 06/24/16 14:03 Pt continues slow improvement in affect, eye contact, verbal output and future orientation. Does complain of STM effects at this point. Will likely cont to treat with acute ECT thru monday of next week. Anticipate no further med adjustments. Ketamine added today as anesthetic to ascertain whether additional mood benefit can be achieved. Will watch for increase in activation or mood instability, however. ECT motor length enhanced somewhat likely due to K. Objective: Vital Signs Temp Pulse Resp BP Pulse Ox 36.8 C 62 12 125/66 H 96 06/24/16 06:27 06/24/16 06:27 06/24/16 06:27 06/24/16 06:27 06/24/16 06:27 ICD10 Worksheet Patient Problems: Problems Problem Status Diagnosed Bipolar disorder Acute Eating disorder Acute Major depress dis, severe Acute OCD (obsessive compulsive disorder) Acute - ICD10 Problem Qualifiers (1) Bipolar disorder Qualifiers: Qualified Description: Bipolar disorder, current episode depressed, severe , without psychotic features Qualifier Code(s): (F31.4) Bipolar disorder, current episode depressed, severe, without psychotic features (2) Major depress dis, severe (3) OCD (obsessive compulsive disorder) (4) Eating disorder
[2016-06-24] MEDS: lamoTRIgine 25 MG TAB PO SCH (20:36)
[2016-06-24] MEDS: QUEtiapine FUMARATE 100 MG TAB PO SCH (20:36)
[2016-06-24] MEDS: HYDROCORTISONE 1% CREAM TP PRN (20:36)
[2016-06-24] MEDS: ISOTRETINOIN 40 MG PO SCH (20:54)
[2016-06-24] MEDS: CYANO/VITAMIN B12 1000 MCG TAB PO SCH (20:54)
[2016-06-24] MEDS: CHOLECALCIFEROL VIT D3 1,000 UNITS TAB PO SCH (20:54)
[2016-06-24] MEDS: OMEGA-3 FATTY ACIDS 1,000 MG CAP PO SCH (20:55)
[2016-06-24] MEDS: valACYclovir 500 MG TAB PO SCH (20:55)
[2016-06-24] MEDS: POLYETHYLENE GLYCOL 3350 17 GM PKT PO SCH (20:55)
[2016-06-24] MEDS: NORGESTIMATE ETHINYL ESTRADIOL PO SCH (20:55)
[2016-06-25] MEDS: CYANO/VITAMIN B12 1000 MCG TAB PO SCH (08:34)
[2016-06-25] MEDS: valACYclovir 500 MG TAB PO SCH (08:34)
[2016-06-25] MEDS: OMEGA-3 FATTY ACIDS 1,000 MG CAP PO SCH ×2 (08:34→20:58)
[2016-06-25] MEDS: NORGESTIMATE ETHINYL ESTRADIOL PO SCH (08:34)
[2016-06-25] MEDS: POLYETHYLENE GLYCOL 3350 17 GM PKT PO SCH (08:35)
[2016-06-25] MEDS: CHOLECALCIFEROL VIT D3 1,000 UNITS TAB PO SCH (08:35)
[2016-06-25] MEDS: ISOTRETINOIN 40 MG PO SCH (09:20)
[2016-06-25] MEDS: HYDROCORTISONE 1% CREAM TP PRN (09:30)
[2016-06-25] MEDS: lamoTRIgine 25 MG TAB PO SCH (20:58)
[2016-06-25] MEDS: QUEtiapine FUMARATE 100 MG TAB PO SCH (20:59)
[2016-06-26] MEDS: CYANO/VITAMIN B12 1000 MCG TAB PO SCH (08:41)
[2016-06-26] MEDS: OMEGA-3 FATTY ACIDS 1,000 MG CAP PO SCH ×2 (08:41→20:28)
[2016-06-26] MEDS: CHOLECALCIFEROL VIT D3 1,000 UNITS TAB PO SCH (08:41)
[2016-06-26] MEDS: valACYclovir 500 MG TAB PO SCH (08:42)
[2016-06-26] MEDS: POLYETHYLENE GLYCOL 3350 17 GM PKT PO SCH (08:42)
[2016-06-26] MEDS: ISOTRETINOIN 40 MG PO SCH (08:45)
[2016-06-26] MEDS: NORGESTIMATE ETHINYL ESTRADIOL PO SCH (09:58)
--- NOTE | 2016-06-26 11:47 | SOAPPROG ---
SOAP Progress Note Assessment/Plan: Assessment: Plan: 06/07/16 16:13 Remains quite depressed. CCM per Dr. Zuniga inc: continued acute course ECT. 06/09/16 16:13 Remains very depressed. CCM. 06/10/16 09:48 No change in clinical status thus far. CCM. 06/13/16 11:18 Remains depressed though objectively improving. Will CCM, consider change to bilateral treatment. 06/23/16 16:34 Much improved over my last encounter with her. CCM. 06/26/16 11:47 Continued improvement. CCM. Subjective: LATE ENTRY FOR 06/25/16 Pt seen, discussed with staff and Dr. Zuniga, chart reviewed. She is animated and interactive, smiling and friendly today. Much less delay in response. Discussed FMLA and her work. She notes some improvement in mood. Continues to prefer to stay in her room, but socializing some. Objective: Vital Signs Temp Pulse Resp BP Pulse Ox 36.7 C 75 14 113/67 96 06/26/16 06:01 06/26/16 06:01 06/26/16 06:01 06/26/16 06:01 06/26/16 06:01 MSE: Marginally groomed, coop. Activity and speech are nl. Affect is better modulated. Mood is "better." TP abbreviated, but linear. TC reveals no psychosis. Does not answer questions re: SI. - Time Spent With Patient Time Spent With Patient: 15" - Pending Discharge Pending Discharge Within 24 Hours: No Pending Discharge Within 48 Hours: No ICD10 Worksheet Patient Problems: Problems Problem Status Diagnosed Bipolar disorder Acute Eating disorder Acute Major depress dis, severe Acute OCD (obsessive compulsive disorder) Acute
--- NOTE | 2016-06-26 11:50 | SOAPPROG ---
TREASURE Progress Note Assessment/Plan: Assessment: Plan: 06/07/16 16:13 Remains quite depressed. [facility] per Dr. Zuniga inc: continued acute course ECT. 06/09/16 16:13 Remains very depressed. CCM. 06/10/16 09:48 No change in clinical status thus far. CCM. 06/13/16 11:18 Remains depressed though objectively improving. Will [facility], consider change to bilateral treatment. 06/23/16 16:34 Much improved over my last encounter with her. CCM. 06/26/16 11:47 Continued improvement. CCM. 06/26/16 11:50 Downturn today. Will [facility], monitor. ECT tomorrow per plan. Subjective: Pt seen, discussed wiht staff. Sitting in room, hugging legs to chest in bed, rocking. She struggles to interact with return of at least a 15 second delay. Objective: Vital Signs Temp Pulse Resp BP Pulse Ox 36.7 C 75 14 113/67 96 06/26/16 06:01 06/26/16 06:01 06/26/16 06:01 06/26/16 06:01 06/26/16 06:01 MSE: Appears anxious, rocking. Affect is constricted, dysphoric, no smiling. Mood is not stated when asked. TP appears blocked v. prominent poverty. - Time Spent With Patient Time Spent With Patient: 15" - Pending Discharge Pending Discharge Within 24 Hours: No Pending Discharge Within 48 Hours: No ICD10 Worksheet Patient Problems: Problems Problem Status Diagnosed Bipolar disorder Acute Eating disorder Acute Major depress dis, severe Acute OCD (obsessive compulsive disorder) Acute
[2016-06-26] MEDS: QUEtiapine FUMARATE 100 MG TAB PO SCH (20:29)
[2016-06-27] MEDS ORDERED: CITRIC ACID/SODIUM CITRATE 30 ML UDCUP PO ONE (04:00)
[2016-06-27] MEDS ORDERED: NS 500 ML IV ONE (04:00)
[2016-06-27] MEDS ORDERED: ONDANSETRON DISINTEGRATING 4 MG TAB PO ONE (04:00)
[2016-06-27] MEDS ORDERED: THEOPHYLLINE ORAL SOLUTION 80 MG/15 ML UDCUP PO ONE (04:00)
[2016-06-27] MEDS ORDERED: LIDOCAINE 2% 5 ML SDV ID ONE (04:00)
[2016-06-27] MEDS ORDERED: GLYCOPYRROLATE 0.2 MG/1 ML VIAL ONE (07:34)
[2016-06-27] MEDS ORDERED: MIDAZOLAM 2 MG/2 ML VIAL ONE (07:34)
[2016-06-27] MEDS ORDERED: fentaNYL 100 MCG/2 ML INJ ONE (07:34)
[2016-06-27] MEDS ORDERED: KETOROLAC 30 MG/1 ML SDV ONE (07:34)
[2016-06-27] MEDS ORDERED: KETAMINE 100 MG/10 ML SYR IVP ONE (07:34)
[2016-06-27] MEDS ORDERED: ROCURONIUM 50 MG/5 ML VIAL ONE (07:35)
[2016-06-27] MEDS ORDERED: SUCCINYLCHOLINE CHLORIDE 200 MG/10 ML VIAL ONE (07:35)
[2016-06-27] MEDS ORDERED: ONDANSETRON 4 MG/2 ML VIAL ONE (07:35)
[2016-06-27] MEDS ORDERED: THEOPHYLLINE ORAL SOLUTION 80 MG/15 ML UDCUP ONE (07:46)
[2016-06-27] MEDS ORDERED: ONDANSETRON DISINTEGRATING 4 MG TAB ONE (08:43)
[2016-06-27] MEDS ORDERED: CITRIC ACID/SODIUM CITRATE 30 ML UDCUP ONE (08:43)
--- NOTE | 2016-06-27 10:19 | SOAPPROG ---
TREASURE Progress Note Assessment/Plan: Assessment: Plan: 06/07/16 16:13 Remains quite depressed. CCM per Dr. Zuniga inc: continued acute course ECT. 06/09/16 16:13 Remains very depressed. CCM. 06/10/16 09:48 No change in clinical status thus far. CCM. 06/13/16 11:18 Remains depressed though objectively improving. Will [facility], consider change to bilateral treatment. 06/23/16 16:34 Much improved over my last encounter with her. CCM. 06/26/16 11:47 Continued improvement. CCM. 06/26/16 11:50 Downturn today. Will [facility], monitor. ECT tomorrow per plan. 06/27/16 10:18 Affect brighter, remains impaired. CCM. Subjective: Pt seen, discussed with staff. Reports feeling "OK." Interactive though delayed in her responses. Underwent RUL ECT without complication this morning. Objective: Vital Signs Temp Pulse Resp BP Pulse Ox 36.6 C 60 12 100/58 L 95 06/27/16 06:00 06/27/16 06:00 06/27/16 06:00 06/27/16 06:00 06/27/16 06:00 MSE: Calm, coop. Affect is blunted, dysphoric. Mood is "OK." TP abbreviated , delayed, impoverished. TC reveals no psychosis. - Time Spent With Patient Time Spent With Patient: 35" - Pending Discharge Pending Discharge Within 24 Hours: No Pending Discharge Within 48 Hours: No ICD10 Worksheet Patient Problems: Problems Problem Status Diagnosed Bipolar disorder Acute Eating disorder Acute Major depress dis, severe Acute OCD (obsessive compulsive disorder) Acute
[2016-06-27] MEDS: ISOTRETINOIN 40 MG PO SCH (14:48)
[2016-06-27] MEDS: NORGESTIMATE ETHINYL ESTRADIOL PO SCH (14:48)
[2016-06-27] MEDS: OMEGA-3 FATTY ACIDS 1,000 MG CAP PO SCH ×2 (16:11→21:48)
[2016-06-27] MEDS: CYANO/VITAMIN B12 1000 MCG TAB PO SCH (16:11)
[2016-06-27] MEDS: CHOLECALCIFEROL VIT D3 1,000 UNITS TAB PO SCH (16:11)
[2016-06-27] MEDS: POLYETHYLENE GLYCOL 3350 17 GM PKT PO SCH ×2 (16:11→16:16)
[2016-06-27] MEDS: valACYclovir 500 MG TAB PO SCH (16:22)
[2016-06-27] MEDS: SUMAtriptan 50 MG TAB PO PRN (19:48)
[2016-06-27] MEDS: QUEtiapine FUMARATE 100 MG TAB PO SCH (21:49)
[2016-06-27] MEDS: lamoTRIgine 25 MG TAB PO SCH (21:49)
[2016-06-28] MEDS: valACYclovir 500 MG TAB PO SCH (08:16)
[2016-06-28] MEDS: CHOLECALCIFEROL VIT D3 1,000 UNITS TAB PO SCH (08:16)
[2016-06-28] MEDS: OMEGA-3 FATTY ACIDS 1,000 MG CAP PO SCH ×2 (08:16→21:01)
[2016-06-28] MEDS: POLYETHYLENE GLYCOL 3350 17 GM PKT PO SCH (08:16)
[2016-06-28] MEDS: CYANO/VITAMIN B12 1000 MCG TAB PO SCH (08:16)
[2016-06-28] MEDS: ISOTRETINOIN 40 MG PO SCH (10:29)
[2016-06-28] MEDS: NORGESTIMATE ETHINYL ESTRADIOL PO SCH (10:30)
[2016-06-28] MEDS: QUEtiapine FUMARATE 100 MG TAB PO SCH (21:01)
[2016-06-28] MEDS: lamoTRIgine 25 MG TAB PO SCH (21:58)
[2016-06-29] MEDS ORDERED: MIDAZOLAM 2 MG/2 ML VIAL ONE (05:05)
[2016-06-29] MEDS ORDERED: fentaNYL 100 MCG/2 ML INJ ONE (05:05)
[2016-06-29] MEDS ORDERED: KETOROLAC 30 MG/1 ML SDV ONE (05:06)
[2016-06-29] MEDS ORDERED: KETAMINE 100 MG/10 ML SYR IVP ONE (05:06)
[2016-06-29] MEDS ORDERED: ONDANSETRON 4 MG/2 ML VIAL ONE (05:06)
[2016-06-29] MEDS ORDERED: GLYCOPYRROLATE 0.2 MG/1 ML VIAL ONE (05:06)
[2016-06-29] MEDS ORDERED: ROCURONIUM 50 MG/5 ML VIAL ONE (05:06)
[2016-06-29] MEDS ORDERED: SUCCINYLCHOLINE CHLORIDE 200 MG/10 ML VIAL ONE (05:07)
[2016-06-29] MEDS ORDERED: NS 500 ML IV ONE (06:00)
[2016-06-29] MEDS ORDERED: ONDANSETRON DISINTEGRATING 4 MG TAB PO ONE (06:00)
[2016-06-29] MEDS ORDERED: CITRIC ACID/SODIUM CITRATE 30 ML UDCUP PO ONE (06:00)
[2016-06-29] MEDS ORDERED: LIDOCAINE 2% 5 ML SDV ID ONE (06:00)
[2016-06-29] MEDS ORDERED: THEOPHYLLINE ORAL SOLUTION 80 MG/15 ML UDCUP PO ONE (06:00)
[2016-06-29] MEDS ORDERED: THEOPHYLLINE ORAL SOLUTION 80 MG/15 ML UDCUP ONE (08:36)
--- NOTE | 2016-06-29 09:10 | SOAPPROG ---
SOAP Progress Note Assessment/Plan: Assessment: Plan: 06/07/16 16:13 Remains quite depressed. CCM per Dr. Zuniga inc: continued acute course ECT. 06/09/16 16:13 Remains very depressed. CCM. 06/10/16 09:48 No change in clinical status thus far. CCM. 06/13/16 11:18 Remains depressed though objectively improving. Will [facility], consider change to bilateral treatment. 06/23/16 16:34 Much improved over my last encounter with her. CCM. 06/26/16 11:47 Continued improvement. CCM. 06/26/16 11:50 Downturn today. Will [facility], monitor. ECT tomorrow per plan. 06/27/16 10:18 Affect brighter, remains impaired. CCM. 06/29/16 09:10 Very regressed. Will [facility]. Dr Zuniga back tomorrow. Subjective: LATE ENTRY FOR 06/28/16 Pt seen, discussed with staff. She was up early and walking the halls. Seemed a bit internally preoccupied. When she sat with me, she was also this way leading to continued delay in responses to questions. She speaks in a high- pitched, childlike voice and demonstrates a very regressive, childlike demeanor. Objective: Vital Signs Temp Pulse Resp BP Pulse Ox 36.6 C 64 12 125/59 H 97 06/29/16 06:00 06/29/16 06:00 06/29/16 06:00 06/29/16 06:00 06/29/16 06:00 MSE: Moderately anxious with closed body posture. Eyes downcast, closed at times. Affect is constricted with occasional odd, inappropriate and incongruent smile. Speech is high pitched, childish tone as if mimicking a child. TP delayed, abbreviated, ? blocking. TC reveals no overt psychosis though a lot of internal preoccupation. - Time Spent With Patient Time Spent With Patient: 25" ICD10 Worksheet Patient Problems: Problems Problem Status Diagnosed Bipolar disorder Acute Eating disorder Acute Major depress dis, severe Acute OCD (obsessive compulsive disorder) Acute
[2016-06-29] MEDS ORDERED: ONDANSETRON DISINTEGRATING 4 MG TAB ONE (10:15)
[2016-06-29] MEDS ORDERED: CITRIC ACID/SODIUM CITRATE 30 ML UDCUP ONE (10:15)
[2016-06-29] MEDS ORDERED: ETOMIDATE 20 MG/10 ML VIAL ONE (10:43)
[2016-06-29] MEDS ORDERED: ONDANSETRON DISINTEGRATING 4 MG TAB PO PRN (10:52)
[2016-06-29] MEDS ORDERED: HYDROCODONE/APAP 5/325 TAB PO PRN (10:52)
[2016-06-29 11:50] VITALS: TEMP 98.3
[2016-06-29] MEDS: POLYETHYLENE GLYCOL 3350 17 GM PKT PO SCH (12:20)
[2016-06-29] MEDS: CYANO/VITAMIN B12 1000 MCG TAB PO SCH (12:20)
[2016-06-29] MEDS: valACYclovir 500 MG TAB PO SCH (12:20)
[2016-06-29] MEDS: OMEGA-3 FATTY ACIDS 1,000 MG CAP PO SCH (12:20)
[2016-06-29] MEDS: CHOLECALCIFEROL VIT D3 1,000 UNITS TAB PO SCH (12:20)
[2016-06-29 12:24] VITALS: BP 127/78; PULSE 77; RESP 12; O2SAT 93
[2016-06-29] MEDS: NORGESTIMATE ETHINYL ESTRADIOL PO SCH (12:26)
[2016-06-29] MEDS: ISOTRETINOIN 40 MG PO SCH (12:26)
[2016-06-29] MEDS: SUMAtriptan 50 MG TAB PO PRN (14:12)
--- NOTE | 2016-06-29 16:46 | GDS ---
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 She has multiple prior psychiatric hospitalizations, mostly in her teens and 20s. She presentl y lives alone, but her brother is also living in [place] with his family. She was admitted on 07/31/2015, and discharged today 06/29/2016. REASON FOR ADMISSION: This patient presents now with her worst exacerbation ever of her depression, starting about 5 months ago with profound vegetative symptoms, hopelessness, and suicidality that hav e proven refractory to medication trials. Dr. Vazquez has even attempted treating her "as if" she noyola s a bipolar spectrum illness with either poor toleration to medication such as the atypical antipsych otics or inadequate response to some low-dose Lamictal. She has been able to work, mustering all of her energy to do so, but on her non working days, has trouble functioning with basic ADLs, grooming, and hygiene. Please see the continuity writer's HPI for further information about different diagnosis (i.e. rul ing out the possibility of bipolar spectrum illness). PHYSICAL EXAMINATION: Routine physical exam performed by Noel Mayorga MD, which reveals: 1. Migraine headaches. These have been occasional and responded to rizatriptan, which is currently prescribed. 2. Premature menopause, on hormone replacement therapy. 3. Macrocytosis of unclear etiology with a normal B12 and folate. She has no anemia, and there are no symptoms. Advised further evaluation as an outpatient after discharge. ROUTINE LAB TESTING: The patient's CBC was within normal limits except for the mildly elevated MCV a t 101. Biochem profile was normal. Hemoglobin A1c was 5.2. C-reactive protein was 2.4. B12 was 46 0. 25-hydroxyvitamin D was 34. Folate was greater than 20. TSH was 1.96. Urine toxicology was neg ative. HOSPITAL COURSE: After discussing this case further with Dr. Vazquez and evaluating the patient for the possibility of positive indicators for bipolar spectrum illness, it was agreed that she should be treated "as if" she is suffering with that condition. With that said, she had given her informed co nsent to restart Lamictal and discontinue her antidepressant, Cymbalta, which was clearly no longer p roviding any benefit, and maybe never had. We used Prozac 40 mg a day for 5 days upon terminating th e Cymbalta in order to circumvent serotonin discontinuation syndrome. Seroquel was also titrated, gi mandi its FDA approval in bipolar depression, and to ameliorate her insomnia and anxiety and loss of ap petite. She did, indeed respond positively to the addition of that medication, but felt oversedated on any dose greater than 150 mg. She ended up discharging on 100 mg, as she could not adapt to the s edative effects otherwise. She did not develop EPS, akathisia, TD or rash/Odom-Franck. Lamictal was kept at a relatively low dose, as she was having short motor seizures to the point that we requi red using theophylline. She underwent 12 acute right unilateral ECT treatments. We attempted to use ketamine as anesthetic for 2 of her last ECT treatments, but she had quite a bit of post treatment s edation necessitating switching back to etomidate. Her Damico score came down from the 50s into the 30 s. Her degree of hopelessness and suicidality did not fully disappear, but the intensity and frequen cy of those thoughts were reduced. She leaves with no imminent suicidal thinking or planning. Her a ffect, which started as highly dysphoric, agitated, and tense, was brightened to the point where she could smile, albeit with a child-like grin, and at times, answer questions with more than a couple of words. Overall, however, she remains impoverished in speech with psychomotor slowing and an increas ed response latency. She does have a perplexed look at times. All of this could indicate, to some d egree, the abulia and hypofrontal type side effects inherent in acute ECT, but could also represent o ngoing depression versus catatonic features versus a psychotic process. All of this is hard to tease apart. In a final meeting with the continuity writer, patient, and brother, all of that was discussed. I enco uraged the brother to leave periodic voice messages for this continuity writer with his observations about [facility] he is seeing her revealing ongoing evidence of depression in the form of nihilistic and self-depre cating rumination or any suicidal ideation. He is also to look for evidence of increasing cognitive impact affecting predominantly short-term memory and apathy, processing speed. He understands that abhi enriquez has to watch her 24 and dispense her medications, remove any lethal means of self-harm from her p ossession, and allow no driving until otherwise specified. DISCHARGE MEDICATION: Ambien 5 mg p.o. q.h.s. p.r.n., Maxalt 10 mg p.o. daily p.r.n. migraine, [place] -3 fatty acids 2000 mg p.o. b.i.d., vitamin D3 2000 units p.o. daily, B12 1000 mcg p.o. daily, MonoNe ssa 28 p.o. daily, valacyclovir 500 mg p.o. daily, Seroquel 100 mg p.o. at bedtime, ibuprofen 400 mg p.o. q.6 hours p.r.n. pain, lorazepam 0.5 mg p.o. daily p.r.n. severe anxiety, lamotrigine 100 mg p.o . at bedtime (please skip the dose the nights prior to ECT), Clavaris 40 mg p.o. daily, Zofran 4 mg p .o. q.6 hours p.r.n. nausea or vomiting on ECT treatment days, Ashley 5/325 one tablet p.o. q.4 hours p.r.n. severe headache on ECT days only. DISPOSITION: The patient will require 24/7 supervision for the next 2 weeks as she recovers from the cognitive side effects of the acute ECT. She should not drive at all until otherwise specified. He r family should dispense her medications to her and allow no access to those medications or anything [id number]. Furthermore, sharp objects or anything else that could be used to self-harm should be taken from her possession. She should follow up with an appointment with Dr. Vazquez as soon as possible. Please return the patient to the emergency room if she experiences increase in mood sympto ms or suicidal thinking. DISCHARGE DIAGNOSES: AXIS I: Mood disorder, not otherwise specified; rule out major depressive diso rder, recurrent, severe versus bipolar disorder, not otherwise specified; history of obsessive-compul sive disorder; history of eating disorder. AXIS II: Deferred. AXIS III: Migraines. AXIS IV: Moderate. AXIS V: 42. /[id number]/MODL
[2016-06-30] MEDS ORDERED: valACYclovir 500 MG TAB PO SCH (09:00)
[2016-07-01] MEDS ORDERED: LIDOCAINE 2% 5 ML SDV ID ONE (04:00)
[2016-07-01] MEDS ORDERED: NS 500 ML IV ONE (04:00)
[2016-07-01] MEDS ORDERED: THEOPHYLLINE ORAL SOLUTION 80 MG/15 ML UDCUP PO ONE (04:00)
[2016-07-01] MEDS ORDERED: CITRIC ACID/SODIUM CITRATE 30 ML UDCUP PO ONE (04:00)
[2016-07-01] MEDS ORDERED: ONDANSETRON DISINTEGRATING 4 MG TAB PO ONE (04:00)
[2016-07-01] MEDS ORDERED: ONDANSETRON 4 MG/2 ML VIAL ONE (05:26)
[2016-07-01] MEDS ORDERED: MIDAZOLAM 2 MG/2 ML VIAL ONE (05:26)
[2016-07-01] MEDS ORDERED: fentaNYL 100 MCG/2 ML INJ ONE (05:26)
[2016-07-01] MEDS ORDERED: GLYCOPYRROLATE 0.2 MG/1 ML VIAL ONE (05:26)
[2016-07-01] MEDS ORDERED: KETOROLAC 30 MG/1 ML SDV ONE (05:26)
[2016-07-01] MEDS ORDERED: ETOMIDATE 20 MG/10 ML VIAL ONE (05:27)
[2016-07-01] MEDS ORDERED: SUCCINYLCHOLINE CHLORIDE 200 MG/10 ML VIAL ONE (05:27)
[2016-07-01] MEDS ORDERED: ROCURONIUM 50 MG/5 ML VIAL ONE (05:27)
== END 2016-06-29 14:55 | disposition home or self-care (01) | DRG 885 ==
LOC: BBEH 14:00
PROVIDERS: ADMIT Psychiatry & Neurology Psychiatry; ATTEND Psychiatry & Neurology Psychiatry
PROC: GZB0ZZZ Electroconvulsive Therapy, Unilateral-Single Seizure (ICD-10-PCS; principal; 2016-06-01)
DX: F33.2 Major depressive disorder, recurrent severe without psychotic features (principal); G43.909 Migraine, unspecified, not intractable, without status migrainosus
CPT/HCPCS: 82607-90; 86141-90; G0477; G0480; J0330; J1885; J2250; J2405; J3010